=== PATIENT | male | born 1965 | race Caucasian/White ===

== ENCOUNTER 2017-01-25 00:13 | Inpatient (IN) | payer MEDICARE, OTHER ==
[~2017-01-25] VITALS: Ht 162.6 cm; Wt 62.0 kg
[~2017-01-25 00:13] MED LIST: CARV3 PO; CLOP75 PO; DIVA500T35 PO; FENO160 PO; FLUO-191 PO; GLIPIZIDE PO; METF10002 PO; OLAN20TA2 PO
[2017-01-25] MEDS ORDERED: FENO48TA15 PO (00:31)
[2017-01-25 00:38] LABS: GLUCOSE,POINT OF CARE 159 MG/DL (70-110)
[2017-01-25] MEDS ORDERED: SODIUM CHLORIDE 0.9% 1,000 ML IV ONE ×2 (00:45→05:30)
[2017-01-25] MEDS ORDERED: KETOROLAC TROMETHAMINE 30 MG/ML VIAL IVP ONE (00:45)
[2017-01-25 00:55] LABS: BASOPHILS % (AUTO) 0.1 % (0.0-2.0); EOSINOPHILS % (AUTO) 0 % (1.0-6.0); HEMATOCRIT 39.4 % (41-53); HEMOGLOBIN 13.5 g/dL (13.5-17.5); LYMPHOCYTES # (AUTO) 0.7 K/uL (1.0-4.8); MEAN CORPUSCULAR HEMOGLOBIN 31.7 pg (26.0-34.0); MEAN CORPUSCULAR HGB CONC 34.2 G/dL (31.0-37.0); MEAN CORPUSCULAR VOLUME 93 fL (80-100); MONOCYTES # (AUTO) 0.3 K/uL (0.1-1.0); MONOCYTES % (AUTO) 2.1 % (2.0-9.0); NEUTROPHILS # (AUTO) 12.2 K/uL (1.8-7.7); PLATELET COUNT (AUTO) 331 K/uL (150-450); RED BLOOD CELL COUNT(AUTO) 4.26 MIL/uL (4.50-5.90); RED CELL DISTRIBUTION WIDTH 13.5 % (11.5-14.5); WHITE BLOOD COUNT (AUTO) 13.1 K/uL (4.5-11.0)
[2017-01-25 00:56] LABS: NEUTROPHILS % (AUTO) 92.8 % (40.0-70.0)
[2017-01-25 01:05] LABS: CALCIUM, TOTAL 9.2 mg/dL (8.8-10.5); CREATININE 9.91 mg/dL (0.60-1.30); POTASSIUM 4.6 mmol/L (3.5-5.1)
[2017-01-25 01:11] LABS: ALBUMIN 3.6 g/dL (3.4-5.0); BILIRUBIN,TOTAL 0.5 mg/dL (0.1-1.0)
[2017-01-25] MEDS ORDERED: ONDANSETRON HCL 4 MG/2 ML VIAL IVP PRN (03:00)
[2017-01-25] MEDS ORDERED: ACETAMINOPHEN 325 MG TABLET PO PRN ×2 (03:00→05:30)
[2017-01-25] MEDS ORDERED: 0.9% SODIUM CHLORIDE 10 ML SYRINGE IVP PRN (03:00)
[2017-01-25] MEDS ORDERED: ONDANSETRON HCL 4 MG/2 ML VIAL IVP ONE (03:30)
[2017-01-25] MEDS ORDERED: MORPHINE SULFATE 4 MG/ML SYRINGE IVP ONE (03:30)
[2017-01-25 03:59] VITALS: BP 153/83
[2017-01-25] MEDS ORDERED: DEXTROSE 50%-WATER 25 GM/50 ML SYRINGE IVP PRN (05:30)
[2017-01-25] MEDS ORDERED: ZOLPIDEM TARTRATE 5 MG TABLET PO PRN (05:30)
[2017-01-25] MEDS ORDERED: MAGNESIUM HYDROXIDE SUSPENSION 30 ML UDCUP PO PRN (05:30)
[2017-01-25] MEDS ORDERED: BISACODYL 10 MG RECTAL RECTAL SUPPOSITORY PR PRN (05:30)
[2017-01-25] MEDS: MORPHINE SULFATE 2 MG/ML SYRINGE IVP PRN (06:03)
[2017-01-25] MEDS: INSULIN ASPART 100 UNITS/ML SQ PRN (06:06)
[2017-01-25 06:49] LABS: GLUCOSE COMMENT 1 Received Meds; GLUCOSE,POINT OF CARE 173 MG/DL (70-110)
[2017-01-25 07:36] VITALS: BP 117/73
[2017-01-25] MEDS ORDERED: HEPARIN SODIUM,PORCINE 5,000 UNITS/ML VIAL SQ SCH (08:00)
[2017-01-25] MEDS: DOCUSATE SODIUM 100 MG CAPSULE PO SCH ×2 (08:30→20:08)
[2017-01-25] MEDS: FENOFIBRATE 48 MG TABLET PO SCH (08:31)
[2017-01-25] MEDS: DIVALPROEX SODIUM 500 MG DR TABLET PO SCH ×3 (08:31→20:08)
[2017-01-25] MEDS ORDERED: PANTOPRAZOLE SODIUM 40 MG DR TABLET PO SCH (09:00)
[2017-01-25] MEDS ORDERED: CLOPIDOGREL BISULFATE 75 MG TABLET PO SCH (09:00)
[2017-01-25 09:21] LABS: HEMATOCRIT 32.1 % (41-53)
[2017-01-25 09:28] LABS: HEMOGLOBIN 11.1 g/dL (13.5-17.5)
[2017-01-25] MEDS: PANTOPRAZOLE SODIUM 80 MG in SODIUM CHLORIDE 0.9% 100 ML IV SCH ×2 (09:50→20:19)
[2017-01-25] MEDS ORDERED: PANTOPRAZOLE SODIUM 80 MG in SODIUM CHLORIDE 0.9% 50 ML IV ONE (10:30)
[2017-01-25] MEDS ORDERED: PANTOPRAZOLE SODIUM 80 MG in SODIUM CHLORIDE 0.9% 100 ML IV SCH (10:30)
[2017-01-25] MEDS ORDERED: GLIP10 PO (11:19)
[2017-01-25] MEDS ORDERED: CARV6 PO (11:19)
[2017-01-25] MEDS: CARVEDILOL 6.25 MG TABLET PO SCH ×2 (11:56→20:08)
[2017-01-25 12:00] LABS: OSMOLALITY 317 mOS/kg (270-310)
[2017-01-25 12:07] LABS: CREATINE KINASE MB 5.2 ng/mL (0-5); CREATINE KINASE, TOTAL 142 U/L (39-308)
[2017-01-25 12:08] LABS: GLUCOSE,POINT OF CARE 95 MG/DL (70-110)
[2017-01-25 12:09] LABS: ACETAMINOPHEN < 2 mcg/mL (10-30)
[2017-01-25 14:50] VITALS: BP 150/82
[2017-01-25 15:31] LABS: ABG A-A DIFF O2 48.6 mmHg (10-20.0); ABG BASE EXCESS -6.5 mmol/L (-2.0-3.0); ABG HCO3 19.7 mmol/L (22.0-26.0); ABG OXYHEMOGLOBIN 90.6 % (94.0-100.0); ABG PCO2 32 mmHg (35-45); ABG PH 7.386 (7.35-7.450); TEMPERATURE, FAHRENHEIT, BG 97.8 FAHREN (96.0-98.6)
[2017-01-25 15:32] LABS: ALLEN TEST, BLOOD GAS Positive
[2017-01-25 16:00] VITALS: BP 133/74
[2017-01-25 16:44] LABS: HEMATOCRIT 34.6 % (41-53); HEMOGLOBIN 11.8 g/dL (13.5-17.5)
[2017-01-25 16:55] LABS: CALCIUM, TOTAL 7.9 mg/dL (8.8-10.5); CREATININE 10.33 mg/dL (0.60-1.30); POTASSIUM 4.6 mmol/L (3.5-5.1)
[2017-01-25 17:02] LABS: APPEARANCE,URINE CLOUDY (CLEAR); GLUCOSE, URINE (UA) NEGATIVE (NEGATIVE); KETONES,URINE TRACE mg/dL (NEGATIVE); LEUKOCYTE ESTERASE ,URINE NEGATIVE (NEGATIVE); OCCULT BLOOD,URINE MODERATE (NEGATIVE); PROTEIN,URINE SEE CONFIRM (NEGATIVE)
[2017-01-25 17:07] LABS: SQUAMOUS EPITHELIAL CELL,UR Moderate /LPF (None Seen); SULFOSALICYLIC ACID,URINE 2+ (Negative)
[2017-01-25 20:00] VITALS: BP 144/76
[2017-01-25 20:52] LABS: GLUCOSE,POINT OF CARE 90 MG/DL (70-110)
[2017-01-25] MEDS ORDERED: SODIUM CHLORIDE 0.9% 250 ML IV ONE (23:51)
[2017-01-26] VITALS (7 sets, daily range): BP systolic 117–168; BP diastolic 54–85
[2017-01-26 01:00] LABS: HEMATOCRIT 27.8 % (41-53); HEMOGLOBIN 9.6 g/dL (13.5-17.5)
[2017-01-26] MEDS: PANTOPRAZOLE SODIUM 80 MG in SODIUM CHLORIDE 0.9% 100 ML IV SCH ×2 (04:56→14:57)
[2017-01-26 05:51] LABS: EOSINOPHILS % (AUTO) 0 % (1.0-6.0); HEMATOCRIT 30.6 % (41-53); HEMOGLOBIN 10.5 g/dL (13.5-17.5); LYMPHOCYTES % (AUTO) 8.4 % (22.0-44.0); MEAN CORPUSCULAR HEMOGLOBIN 31.9 pg (26.0-34.0); MEAN CORPUSCULAR HGB CONC 34.2 G/dL (31.0-37.0); MEAN CORPUSCULAR VOLUME 93 fL (80-100); MONOCYTES % (AUTO) 10.4 % (2.0-9.0); NEUTROPHILS # (AUTO) 9.4 K/uL (1.8-7.7); NEUTROPHILS % (AUTO) 81.2 % (40.0-70.0); PLATELET COUNT (AUTO) 295 K/uL (150-450); RED BLOOD CELL COUNT(AUTO) 3.28 MIL/uL (4.50-5.90); RED CELL DISTRIBUTION WIDTH 13.7 % (11.5-14.5); WHITE BLOOD COUNT (AUTO) 11.6 K/uL (4.5-11.0)
[2017-01-26 05:52] LABS: MONOCYTES # (AUTO) 1.2 K/uL (0.1-1.0)
[2017-01-26 06:05] LABS: CALCIUM, TOTAL 7.9 mg/dL (8.8-10.5); CREATININE 8.26 mg/dL (0.60-1.30)
[2017-01-26 06:58] LABS: GLUCOSE,POINT OF CARE 92 MG/DL (70-110)
[2017-01-26 07:22] LABS: GLUCOSE,POINT OF CARE 80 MG/DL (70-110)
[2017-01-26] MEDS: DOCUSATE SODIUM 100 MG CAPSULE PO SCH ×2 (09:26→20:34)
[2017-01-26] MEDS: CLOPIDOGREL BISULFATE 75 MG TABLET PO SCH (09:26)
[2017-01-26] MEDS: FENOFIBRATE 48 MG TABLET PO SCH (09:26)
[2017-01-26] MEDS: DIVALPROEX SODIUM 500 MG DR TABLET PO SCH ×3 (09:26→20:35)
[2017-01-26] MEDS: CARVEDILOL 6.25 MG TABLET PO SCH ×2 (09:30→20:35)
[2017-01-26] MEDS: ONDANSETRON HCL 4 MG/2 ML VIAL IVP PRN (09:32)
[2017-01-26] MEDS ORDERED: SODIUM CHLORIDE 0.9% 1,000 ML IV ONE (09:45)
[2017-01-26 12:16] LABS: HEMATOCRIT 29.4 % (41-53); HEMOGLOBIN 10.2 g/dL (13.5-17.5)
[2017-01-26 16:19] LABS: GLUCOSE,POINT OF CARE 123 MG/DL (70-110)
[2017-01-26 17:28] LABS: GLUCOSE COMMENT 1 Received Meds; GLUCOSE,POINT OF CARE 152 MG/DL (70-110)
[2017-01-26 17:38] LABS: HEMATOCRIT 28.4 % (41-53); HEMOGLOBIN 9.8 g/dL (13.5-17.5)
[2017-01-26] MEDS: BISACODYL 5 MG EC TABLET PO SCH (20:34)
[2017-01-27] VITALS (7 sets, daily range): BP systolic 146–178; BP diastolic 74–97
[2017-01-27] MEDS: PANTOPRAZOLE SODIUM 80 MG in SODIUM CHLORIDE 0.9% 100 ML IV SCH ×3 (02:32→20:34)
[2017-01-27 06:09] LABS: BASOPHILS % (AUTO) 0.2 % (0.0-2.0); EOSINOPHILS % (AUTO) 0 % (1.0-6.0); HEMATOCRIT 28.5 % (41-53); HEMOGLOBIN 9.9 g/dL (13.5-17.5); LYMPHOCYTES % (AUTO) 11.3 % (22.0-44.0); MEAN CORPUSCULAR HEMOGLOBIN 32.2 pg (26.0-34.0); MEAN CORPUSCULAR HGB CONC 34.8 G/dL (31.0-37.0); MEAN CORPUSCULAR VOLUME 93 fL (80-100); MONOCYTES # (AUTO) 0.7 K/uL (0.1-1.0); MONOCYTES % (AUTO) 7.7 % (2.0-9.0); NEUTROPHILS % (AUTO) 80.8 % (40.0-70.0); PLATELET COUNT (AUTO) 259 K/uL (150-450); RED BLOOD CELL COUNT(AUTO) 3.08 MIL/uL (4.50-5.90); RED CELL DISTRIBUTION WIDTH 13.5 % (11.5-14.5); WHITE BLOOD COUNT (AUTO) 8.7 K/uL (4.5-11.0)
[2017-01-27 06:20] LABS: CALCIUM, TOTAL 8.6 mg/dL (8.8-10.5); CREATININE 3.68 mg/dL (0.60-1.30); POTASSIUM 3.9 mmol/L (3.5-5.1)
[2017-01-27] MEDS ORDERED: ONDANSETRON HCL 4 MG/2 ML VIAL IVP ONE (06:50)
[2017-01-27] MEDS ORDERED: PROPOFOL 1% 20 ML VIAL IVP ONE (06:50)
[2017-01-27 07:22] LABS: GLUCOSE COMMENT 1 Received Meds; GLUCOSE,POINT OF CARE 144 MG/DL (70-110)
[2017-01-27] MEDS: CARVEDILOL 6.25 MG TABLET PO SCH ×2 (08:52→20:34)
[2017-01-27] MEDS: CLOPIDOGREL BISULFATE 75 MG TABLET PO SCH (08:52)
[2017-01-27] MEDS: FENOFIBRATE 48 MG TABLET PO SCH (08:52)
[2017-01-27] MEDS: DIVALPROEX SODIUM 500 MG DR TABLET PO SCH ×3 (08:52→20:34)
[2017-01-27] MEDS: DOCUSATE SODIUM 100 MG CAPSULE PO SCH ×2 (08:52→20:34)
[2017-01-27] MEDS: BISACODYL 5 MG EC TABLET PO SCH ×2 (08:52→20:34)
[2017-01-27 09:09] LABS: GLUCOSE,POINT OF CARE 165 MG/DL (70-110)
[2017-01-27] MEDS: INSULIN ASPART 100 UNITS/ML SQ PRN ×3 (12:10→20:37)
[2017-01-27] MEDS: ONDANSETRON HCL 4 MG/2 ML VIAL IVP PRN (22:00)
[2017-01-27] MEDS ORDERED: CloNIDine HCL 0.1 MG TABLET PO PRN (23:30)
[2017-01-27 23:48] LABS: GLUCOSE COMMENT 1 Received Meds; GLUCOSE,POINT OF CARE 222 MG/DL (70-110)
[2017-01-28] MEDS: HYDROCODONE/ACETAMINOPHEN 5-325 MG TABLET PO PRN ×2 (00:05→12:28)
[2017-01-28 04:23] VITALS: BP 151/78
[2017-01-28] MEDS: INSULIN ASPART 100 UNITS/ML SQ PRN (05:48)
[2017-01-28 06:20] LABS: BASOPHILS % (AUTO) 0.2 % (0.0-2.0); EOSINOPHILS % (AUTO) 0.1 % (1.0-6.0); HEMATOCRIT 30.4 % (41-53); HEMOGLOBIN 10.5 g/dL (13.5-17.5); LYMPHOCYTES # (AUTO) 1.4 K/uL (1.0-4.8); LYMPHOCYTES % (AUTO) 19.6 % (22.0-44.0); MEAN CORPUSCULAR HEMOGLOBIN 32.4 pg (26.0-34.0); MEAN CORPUSCULAR HGB CONC 34.6 G/dL (31.0-37.0); MEAN CORPUSCULAR VOLUME 94 fL (80-100); MONOCYTES # (AUTO) 0.9 K/uL (0.1-1.0); MONOCYTES % (AUTO) 12.8 % (2.0-9.0); NEUTROPHILS % (AUTO) 67.3 % (40.0-70.0); PLATELET COUNT (AUTO) 283 K/uL (150-450); RED BLOOD CELL COUNT(AUTO) 3.25 MIL/uL (4.50-5.90); RED CELL DISTRIBUTION WIDTH 13.2 % (11.5-14.5); WHITE BLOOD COUNT (AUTO) 7.4 K/uL (4.5-11.0)
[2017-01-28 06:28] LABS: GLUCOSE,POINT OF CARE 265 MG/DL (70-110)
[2017-01-28 06:28] LABS: GLUCOSE,POINT OF CARE 176 MG/DL (70-110)
[2017-01-28 06:31] LABS: CALCIUM, TOTAL 9.2 mg/dL (8.8-10.5); CREATININE 1.74 mg/dL (0.60-1.30); MAGNESIUM 1.4 mg/dL (1.80-2.40); PHOSPHORUS 2.1 mg/dL (2.5-4.9); POTASSIUM 4.1 mmol/L (3.5-5.1)
[2017-01-28] MEDS: PANTOPRAZOLE SODIUM 80 MG in SODIUM CHLORIDE 0.9% 100 ML IV SCH (06:37)
[2017-01-28 07:33] VITALS: BP 165/87
[2017-01-28] MEDS: DIVALPROEX SODIUM 500 MG DR TABLET PO SCH ×3 (08:06→20:28)
[2017-01-28] MEDS: BISACODYL 5 MG EC TABLET PO SCH ×2 (08:06→20:28)
[2017-01-28] MEDS: DOCUSATE SODIUM 100 MG CAPSULE PO SCH ×2 (08:06→20:28)
[2017-01-28] MEDS: CLOPIDOGREL BISULFATE 75 MG TABLET PO SCH (08:06)
[2017-01-28] MEDS: FENOFIBRATE 48 MG TABLET PO SCH (08:06)
[2017-01-28] MEDS: CARVEDILOL 6.25 MG TABLET PO SCH ×2 (08:06→20:28)
[2017-01-28] MEDS: ONDANSETRON HCL 4 MG/2 ML VIAL IVP PRN ×2 (08:46→14:39)
[2017-01-28] MEDS: MORPHINE SULFATE 2 MG/ML SYRINGE IVP PRN (10:05)
[2017-01-28 11:30] VITALS: BP 190/98
[2017-01-28] MEDS ORDERED: SODIUM CHLORIDE 0.9% 1,000 ML IV ONE ×2 (12:15)
[2017-01-28] MEDS ORDERED: MAGNESIUM OXIDE 400 MG TABLET PO PRN (13:15)
[2017-01-28] MEDS ORDERED: MAGNESIUM SULFATE 4 GM/WATER 100 ML IV PRN (13:15)
[2017-01-28 13:36] LABS: ALBUMIN 2.9 g/dL (3.4-5.0)
[2017-01-28] MEDS: MAGNESIUM SULFATE 2 GM in DEXTROSE 5%-WATER 50 ML IV PRN (14:37)
[2017-01-28] MEDS: AmLODIPine BESYLATE 5 MG TABLET PO SCH (14:37)
[2017-01-28 15:49] VITALS: BP 142/83
[2017-01-28] MEDS: PANTOPRAZOLE SODIUM 40 MG/VIAL IVP SCH (20:28)
[2017-01-28 20:30] VITALS: BP 162/94
[2017-01-29 00:08] LABS: GLUCOSE COMMENT 1 Received Meds; GLUCOSE,POINT OF CARE 157 MG/DL (70-110)
[2017-01-29 00:11] VITALS: BP 127/82
[2017-01-29 00:37] LABS: GLUCOSE,POINT OF CARE 222 MG/DL (70-110)
[2017-01-29 00:43] LABS: GLUCOSE,POINT OF CARE 170 MG/DL (70-110)
[2017-01-29 00:43] LABS: GLUCOSE COMMENT 1 Received Meds; GLUCOSE,POINT OF CARE 152 MG/DL (70-110)
[2017-01-29 04:59] VITALS: BP 152/89
[2017-01-29 06:42] LABS: BASOPHILS % (AUTO) 0.2 % (0.0-2.0); EOSINOPHILS % (AUTO) 0.6 % (1.0-6.0); HEMATOCRIT 31.8 % (41-53); LYMPHOCYTES # (AUTO) 1.5 K/uL (1.0-4.8); LYMPHOCYTES % (AUTO) 21.2 % (22.0-44.0); MEAN CORPUSCULAR HEMOGLOBIN 32.1 pg (26.0-34.0); MEAN CORPUSCULAR HGB CONC 34.5 G/dL (31.0-37.0); MEAN CORPUSCULAR VOLUME 93 fL (80-100); MONOCYTES % (AUTO) 13.9 % (2.0-9.0); NEUTROPHILS # (AUTO) 4.6 K/uL (1.8-7.7); NEUTROPHILS % (AUTO) 64.1 % (40.0-70.0); PLATELET COUNT (AUTO) 301 K/uL (150-450); RED BLOOD CELL COUNT(AUTO) 3.42 MIL/uL (4.50-5.90); RED CELL DISTRIBUTION WIDTH 13.3 % (11.5-14.5); WHITE BLOOD COUNT (AUTO) 7.2 K/uL (4.5-11.0)
[2017-01-29 07:44] VITALS: BP 157/81
[2017-01-29 07:45] LABS: ANION GAP 9 mmol/L (8-16); CALCIUM, TOTAL 8.9 mg/dL (8.8-10.5); CARBON DIOXIDE 23 mmol/L (22-29); CHLORIDE 99 mmol/L (98-107); CREATININE 1.21 mg/dL (0.60-1.30); GLOMERULAR FILTR. RATE CALC > 60 mL/min (>60); PHOSPHORUS 2.4 mg/dL (2.5-4.9); POTASSIUM 3.9 mmol/L (3.5-5.1); SODIUM SERUM 131 mmol/L (136-145); UREA NITROGEN, BLOOD 28 mg/dL (7-18)
[2017-01-29] MEDS: PANTOPRAZOLE SODIUM 40 MG/VIAL IVP SCH ×2 (08:29→20:54)
[2017-01-29] MEDS: DOCUSATE SODIUM 100 MG CAPSULE PO SCH ×2 (08:30→20:53)
[2017-01-29] MEDS: FENOFIBRATE 48 MG TABLET PO SCH (08:30)
[2017-01-29] MEDS: HYDROCODONE/ACETAMINOPHEN 5-325 MG TABLET PO PRN (08:30)
[2017-01-29] MEDS: CARVEDILOL 6.25 MG TABLET PO SCH ×2 (08:30→20:54)
[2017-01-29] MEDS: DIVALPROEX SODIUM 500 MG DR TABLET PO SCH ×3 (08:30→20:53)
[2017-01-29] MEDS: CLOPIDOGREL BISULFATE 75 MG TABLET PO SCH (08:30)
[2017-01-29] MEDS: AmLODIPine BESYLATE 5 MG TABLET PO SCH (08:30)
[2017-01-29] MEDS: BISACODYL 5 MG EC TABLET PO SCH ×2 (08:31→20:53)
[2017-01-29 11:34] VITALS: BP 110/69
[2017-01-29] MEDS: MAGNESIUM SULFATE 2 GM in DEXTROSE 5%-WATER 50 ML IV PRN (11:50)
[2017-01-29] MEDS: MORPHINE SULFATE 2 MG/ML SYRINGE IVP PRN (11:50)
[2017-01-29] MEDS: INSULIN ASPART 100 UNITS/ML SQ PRN ×2 (11:55→20:59)
[2017-01-29] MEDS ORDERED: SODIUM PHOS,M-BASIC-D-BASIC 30 MMOL in DEXTROSE 5%-WATER 250 ML IV ONE ×2 (12:00→15:00)
[2017-01-29] MEDS ORDERED: MAGNESIUM SULFATE 3 GM in DEXTROSE 5%-WATER 100 ML IV ONE (12:00)
[2017-01-29 13:47] LABS: GLUCOSE COMMENT 1 Received Meds; GLUCOSE,POINT OF CARE 160 MG/DL (70-110)
[2017-01-29 15:54] VITALS: BP 136/77
[2017-01-29 19:28] LABS: RBC MORPHOLOGY COMMENT NORMAL RBC MORPH
[2017-01-29 20:20] VITALS: BP 132/80
[2017-01-30 00:10] VITALS: BP 138/85
[2017-01-30 05:09] VITALS: BP 116/75
[2017-01-30] MEDS: INSULIN ASPART 100 UNITS/ML SQ PRN ×2 (05:57→11:31)
[2017-01-30 05:58] LABS: GLUCOSE,POINT OF CARE 244 MG/DL (70-110)
[2017-01-30 07:28] VITALS: BP 132/74
[2017-01-30] MEDS: CARVEDILOL 6.25 MG TABLET PO SCH (08:14)
[2017-01-30] MEDS: BISACODYL 5 MG EC TABLET PO SCH (08:14)
[2017-01-30] MEDS: DOCUSATE SODIUM 100 MG CAPSULE PO SCH (08:14)
[2017-01-30] MEDS: DIVALPROEX SODIUM 500 MG DR TABLET PO SCH ×2 (08:14→16:40)
[2017-01-30] MEDS: AmLODIPine BESYLATE 5 MG TABLET PO SCH (08:14)
[2017-01-30] MEDS: FENOFIBRATE 48 MG TABLET PO SCH (08:14)
[2017-01-30] MEDS: CLOPIDOGREL BISULFATE 75 MG TABLET PO SCH (08:14)
[2017-01-30] MEDS: PANTOPRAZOLE SODIUM 40 MG/VIAL IVP SCH (08:17)
[2017-01-30 11:06] VITALS: BP 122/76
[2017-01-30 14:54] VITALS: BP 117/63
[2017-01-30] MEDS ORDERED: AMLO-511 PO (17:24)
[2017-01-30] MEDS ORDERED: GLIP5 PO (17:24)
[2017-01-31 17:33] LABS: GLUCOSE,POINT OF CARE 192 MG/DL (70-110)
[2017-01-31 17:37] LABS: GLUCOSE COMMENT 1 Received Meds; GLUCOSE,POINT OF CARE 235 MG/DL (70-110)
[2017-01-31 17:38] LABS: GLUCOSE COMMENT 1 Received Meds; GLUCOSE,POINT OF CARE 187 MG/DL (70-110)
[2017-01-31 17:38] LABS: GLUCOSE COMMENT 1 Received Meds; GLUCOSE,POINT OF CARE 218 MG/DL (70-110)
== END 2017-01-30 18:17 | disposition home or self-care (01) | DRG 388 ==
LOC: EMS 00:15 → 6N 03:00 → ICU 14:51 → 5S 01-26 15:40
PROVIDERS: ADMIT Internal Medicine; ATTEND Internal Medicine
PROC: 0DJ08ZZ Inspection of Upper Intestinal Tract, Via Natural or Artificial Opening Endoscopic (ICD-10-PCS; principal; 2017-01-25 10:15)
DX: K56.600 Partial intestinal obstruction, unspecified as to cause (principal); E43 Unspecified severe protein-calorie malnutrition; J90 Pleural effusion, not elsewhere classified; N17.9 Acute kidney failure, unspecified; K92.0 Hematemesis; E11.22 Type 2 diabetes mellitus with diabetic chronic kidney disease; N18.3 Chronic kidney disease, stage 3 (moderate); E87.2 Acidosis; E87.1 Hypo-osmolality and hyponatremia; K20.9 Esophagitis, unspecified; E11.65 Type 2 diabetes mellitus with hyperglycemia; E78.5 Hyperlipidemia, unspecified; E87.8 Other disorders of electrolyte and fluid balance, not elsewhere classified; I12.9 Hypertensive chronic kidney disease with stage 1 through stage 4 chronic kidney disease, or unspecified chronic kidney disease; F10.10 Alcohol abuse, uncomplicated; F12.90 Cannabis use, unspecified, uncomplicated; F17.210 Nicotine dependence, cigarettes, uncomplicated; F25.9 Schizoaffective disorder, unspecified; M54.30 Sciatica, unspecified side; I25.10 Atherosclerotic heart disease of native coronary artery without angina pectoris; Z79.02 Long term (current) use of antithrombotics/antiplatelets; Z95.5 Presence of coronary angioplasty implant and graft; Z90.49 Acquired absence of other specified parts of digestive tract; Z79.899 Other long term (current) drug therapy; Z71.6 Tobacco abuse counseling; Z68.23 Body mass index [BMI] 23.0-23.9, adult
CPT/HCPCS: 71250; 74010; 74176; 76705; 76770; 80307; 82010; 82306; 82570; 82652; 82693; 82805; 82962; 83605; 83735; 83930; 83935; 83970; 84100; 84156; 84300; 84540; 85014; 85018; 87081; 93005; 94002; 96361; 96374; 99285; C9113; G0480; G0481; J1644; J1885; J2270; J2405; J2704; J3475; J3490; J7030; J7050; J7060

== ENCOUNTER 2017-02-18 13:04 | Inpatient (IN) | payer MEDICARE, OTHER ==
[~2017-02-18] VITALS: Ht 162.6 cm; Wt 60.0 kg
[~2017-02-18 13:04] MED LIST changes: +AMLO-511 PO; -CARV3 PO; +CARV6 PO; -FENO160 PO; +FENO48TA15 PO; +GLIP5 PO; -GLIPIZIDE PO; -METF10002 PO
[2017-02-18] MEDS ORDERED: RANI150T7 PO (13:24)
[2017-02-18] MEDS ORDERED: METF500T4 PO (13:24)
[2017-02-18] MEDS ORDERED: LISI-660 PO (13:24)
[2017-02-18] MEDS ORDERED: ATOR40TA28 PO (13:24)
[2017-02-18 13:48] LABS: GLUCOSE,POINT OF CARE 164 MG/DL (70-110)
[2017-02-18] MEDS ORDERED: PANTOPRAZOLE SODIUM 40 MG/VIAL IVP ONE (14:15)
[2017-02-18] MEDS ORDERED: ONDANSETRON HCL 4 MG/2 ML VIAL IVP ONE (14:15)
[2017-02-18] MEDS ORDERED: SODIUM CHLORIDE 0.9% 1,000 ML IV ONE (14:15)
[2017-02-18 15:43] LABS: ANION GAP 9 mmol/L (8-16); CALCIUM, TOTAL 9.1 mg/dL (8.8-10.5); CARBON DIOXIDE 24 mmol/L (22-29); CHLORIDE 102 mmol/L (98-107); GLOMERULAR FILTR. RATE CALC 49 mL/min (>60); GLUCOSE,RANDOM 146 mg/dL (70-110); POTASSIUM 4.8 mmol/L (3.5-5.1); SODIUM SERUM 135 mmol/L (136-145); UREA NITROGEN, BLOOD 22 mg/dL (7-18)
[2017-02-18 15:44] LABS: BASOPHILS # (AUTO) 0.02 K/uL (0.00-0.20); BASOPHILS % (AUTO) 0.3 % (0.0-2.0); EOSINOPHILS # (AUTO) 0.02 K/uL (0.00-0.70); EOSINOPHILS % (AUTO) 0.37 % (1.0-6.0); HEMATOCRIT 24.1 % (41-53); LYMPHOCYTES # (AUTO) 1.5 K/uL (1.0-4.8); LYMPHOCYTES % (AUTO) 22.2 % (22.0-44.0); MEAN CORPUSCULAR HEMOGLOBIN 31.9 pg (26.0-34.0); MEAN CORPUSCULAR HGB CONC 33.3 G/dL (31.0-37.0); MEAN CORPUSCULAR VOLUME 96 fL (80-100); MONOCYTES # (AUTO) 0.4 K/uL (0.1-1.0); MONOCYTES % (AUTO) 6.3 % (2.0-9.0); NEUTROPHILS # (AUTO) 4.7 K/uL (1.8-7.7); NEUTROPHILS % (AUTO) 70.9 % (40.0-70.0); PLATELET COUNT (AUTO) 231 K/uL (150-450); RED BLOOD CELL COUNT(AUTO) 2.51 MIL/uL (4.50-5.90); RED CELL DISTRIBUTION WIDTH 14.2 % (11.5-14.5)
[2017-02-18 15:49] LABS: ALANINE AMINOTRANSFERASE 16 U/L (12-78); ALBUMIN 3.1 g/dL (3.4-5.0); ALKALINE PHOSPHATASE 50 U/L (46-116); ASPARTATE AMINOTRANSFERASE 9 U/L (15-37); BILIRUBIN,TOTAL 0.2 mg/dL (0.1-1.0); CREATINE KINASE, TOTAL 26 U/L (39-308); LIPASE 285 U/L (73-393); TOTAL PROTEIN, SERUM 6.2 g/dL (6.4-8.2)
[2017-02-18 15:56] LABS: PROTHROMBIN TIME 10.8 SEC (9.4-11.6)
[2017-02-18 16:17] LABS: B-TYPE NATRIURETIC PEPTIDE 101 pg/mL (0-100)
[2017-02-18 17:57] LABS: APPEARANCE,URINE CLEAR (CLEAR); BILIRUBIN,URINE NEGATIVE (NEGATIVE); GLUCOSE, URINE (UA) NEGATIVE (NEGATIVE); KETONES,URINE NEGATIVE (NEGATIVE); LEUKOCYTE ESTERASE ,URINE NEGATIVE (NEGATIVE); NITRATE,URINE NEGATIVE (NEGATIVE); OCCULT BLOOD,URINE NEGATIVE (NEGATIVE); PH,URINE 5.5 (5.0-8.0); PROTEIN,URINE NEGATIVE (NEGATIVE); UROBILINOGEN,URINE 0.2 mg/dL (<=1.0)
[2017-02-18] MEDS ORDERED: ONDANSETRON HCL 4 MG/2 ML VIAL IVP PRN ×2 (20:15→23:30)
[2017-02-18] MEDS ORDERED: 0.9% SODIUM CHLORIDE 10 ML SYRINGE IVP PRN (20:15)
[2017-02-18] MEDS ORDERED: ACETAMINOPHEN 325 MG TABLET PO PRN ×2 (20:15→23:30)
[2017-02-18 21:00] VITALS: BP 148/89
[2017-02-18] MEDS ORDERED: ALBUTEROL SULFATE 2.5 MG/0.5 ML NEB SOLUTION NEB PRN (23:30)
[2017-02-18] MEDS ORDERED: DEXTROSE 50%-WATER 25 GM/50 ML SYRINGE IVP PRN (23:30)
[2017-02-18] MEDS ORDERED: ZOLPIDEM TARTRATE 5 MG TABLET PO PRN (23:30)
[2017-02-18] MEDS ORDERED: BISACODYL 10 MG RECTAL RECTAL SUPPOSITORY PR PRN (23:30)
[2017-02-18] MEDS ORDERED: MORPHINE SULFATE 2 MG/ML SYRINGE IVP PRN (23:30)
[2017-02-18] MEDS ORDERED: HYDROCODONE/ACETAMINOPHEN 5-325 MG TABLET PO PRN (23:30)
[2017-02-18] MEDS ORDERED: IPRATROPIUM BROMIDE 0.5 MG/2.5 ML NEB SOLUTION NEB PRN (23:30)
[2017-02-18] MEDS ORDERED: INSULIN REGULAR, HUMAN 100 UNITS/ML SQ PRN (23:30)
[2017-02-18] MEDS ORDERED: MAGNESIUM HYDROXIDE SUSPENSION 30 ML UDCUP PO PRN (23:30)
[2017-02-19] VITALS (14 sets, daily range): BP systolic 128–156; BP diastolic 66–86
[2017-02-19] MEDS: HEPARIN SODIUM,PORCINE 5,000 UNITS/ML VIAL SQ SCH ×4 (01:28→23:40)
[2017-02-19] MEDS: NITROGLYCERIN 2% (1 GM=INCH) PACKET TP SCH ×5 (01:28→23:40)
[2017-02-19 06:33] LABS: ALANINE AMINOTRANSFERASE 15 U/L (12-78); ALBUMIN 2.5 g/dL (3.4-5.0); ALKALINE PHOSPHATASE 42 U/L (46-116); ANION GAP 5 mmol/L (8-16); ASPARTATE AMINOTRANSFERASE 10 U/L (15-37); BILIRUBIN,TOTAL 0.2 mg/dL (0.1-1.0); CALCIUM, TOTAL 8.7 mg/dL (8.8-10.5); CARBON DIOXIDE 25 mmol/L (22-29); CHLORIDE 106 mmol/L (98-107); CHOL/HDL RATIO 3.2 (4.2-7.3); CHOLESTEROL 106 mg/dL (131-200); CREATININE 1.07 mg/dL (0.60-1.30); GLOMERULAR FILTR. RATE CALC > 60 mL/min (>60); GLUCOSE,RANDOM 77 mg/dL (70-110); HDL CHOLESTEROL 33 mg/dL (40-60); POTASSIUM 4.6 mmol/L (3.5-5.1); SODIUM SERUM 136 mmol/L (136-145); TOTAL PROTEIN, SERUM 5.2 g/dL (6.4-8.2); TRIGLYCERIDES 247 mg/dL (15-150); UREA NITROGEN, BLOOD 16 mg/dL (7-18)
[2017-02-19 06:34] LABS: LDL CHOL (CALC.) 24 mg/dL (0-130)
[2017-02-19 07:03] LABS: BASOPHILS # (AUTO) 0.01 K/uL (0.00-0.20); BASOPHILS % (AUTO) 0.3 % (0.0-2.0); EOSINOPHILS # (AUTO) 0.03 K/uL (0.00-0.70); EOSINOPHILS % (AUTO) 0.66 % (1.0-6.0); LYMPHOCYTES # (AUTO) 1.6 K/uL (1.0-4.8); LYMPHOCYTES % (AUTO) 39.1 % (22.0-44.0); MEAN CORPUSCULAR HEMOGLOBIN 31.9 pg (26.0-34.0); MEAN CORPUSCULAR HGB CONC 34.2 G/dL (31.0-37.0); MEAN CORPUSCULAR VOLUME 93 fL (80-100); MONOCYTES # (AUTO) 0.4 K/uL (0.1-1.0); NEUTROPHILS # (AUTO) 2.1 K/uL (1.8-7.7); PLATELET COUNT (AUTO) 221 K/uL (150-450)
[2017-02-19] MEDS: GlipiZIDE 5 MG TABLET PO SCH (07:15)
[2017-02-19 07:22] LABS: HEMATOCRIT 20.6 % (41-53)
[2017-02-19] MEDS ORDERED: PANTOPRAZOLE SODIUM 40 MG DR TABLET PO SCH (09:00)
[2017-02-19] MEDS ORDERED: LANSOPRAZOLE 30 MG SOLUBLE TABLET PO SCH (09:00)
[2017-02-19] MEDS: ASPIRIN 81 MG CHEWABLE TABLET PO SCH (09:01)
[2017-02-19] MEDS: CARVEDILOL 6.25 MG TABLET PO SCH ×2 (09:02→20:23)
[2017-02-19] MEDS: DOCUSATE SODIUM 100 MG CAPSULE PO SCH ×2 (09:02→20:23)
[2017-02-19] MEDS: DIVALPROEX SODIUM 500 MG DR TABLET PO SCH ×3 (09:03→20:23)
[2017-02-19] MEDS: ATORVASTATIN CALCIUM 40 MG TABLET PO SCH (09:03)
[2017-02-19] MEDS: CLOPIDOGREL BISULFATE 75 MG TABLET PO SCH (09:04)
[2017-02-19] MEDS: FENOFIBRATE 48 MG TABLET PO SCH (09:04)
[2017-02-19] MEDS: FLUoxetine HCL 20 MG CAPSULE PO SCH ×3 (09:04→20:23)
[2017-02-19] MEDS: LISINOPRIL 5 MG TABLET PO SCH (09:05)
[2017-02-19] MEDS: RANITIDINE HCL 150 MG TABLET PO SCH (09:05)
[2017-02-19] MEDS: OLANZapine 10 MG TABLET PO SCH (09:06)
[2017-02-19] MEDS ORDERED: SODIUM CHLORIDE 0.9% 250 ML IV ONE (10:01)
[2017-02-19] MEDS ORDERED: METOCLOPRAMIDE HCL 5 MG/ML 2 ML VIAL IVP PRN (12:15)
[2017-02-19] MEDS: PANTOPRAZOLE SODIUM 40 MG/VIAL IVP SCH (20:23)
[2017-02-19 23:08] LABS: GLUCOMETER DEV NAME(LOC) 5N 1M; GLUCOSE,POINT OF CARE 122 MG/DL (70-110)
[2017-02-19 23:08] LABS: GLUCOMETER DEV NAME(LOC) 5N 1M; GLUCOSE,POINT OF CARE 132 MG/DL (70-110)
[2017-02-19 23:08] LABS: GLUCOMETER DEV NAME(LOC) 5N 1M; GLUCOSE,POINT OF CARE 91 MG/DL (70-110)
[2017-02-19 23:08] LABS: GLUCOMETER DEV NAME(LOC) 5N 2R; GLUCOSE,POINT OF CARE 88 MG/DL (70-110)
[2017-02-19 23:08] LABS: GLUCOMETER DEV NAME(LOC) 5N 1M; GLUCOSE,POINT OF CARE 214 MG/DL (70-110)
[2017-02-20 00:12] VITALS: BP 133/80
[2017-02-20 05:00] VITALS: BP 131/84
[2017-02-20] MEDS: GlipiZIDE 5 MG TABLET PO SCH (06:04)
[2017-02-20] MEDS: NITROGLYCERIN 2% (1 GM=INCH) PACKET TP SCH ×2 (06:04→12:00)
[2017-02-20 06:12] LABS: BASOPHILS % (AUTO) 0.3 % (0.0-2.0); EOSINOPHILS % (AUTO) 0.6 % (1.0-6.0); HEMATOCRIT 27.3 % (41-53); HEMOGLOBIN 9.5 g/dL (13.5-17.5); LYMPHOCYTES # (AUTO) 2.1 K/uL (1.0-4.8); LYMPHOCYTES % (AUTO) 34.7 % (22.0-44.0); MEAN CORPUSCULAR HEMOGLOBIN 32.1 pg (26.0-34.0); MEAN CORPUSCULAR HGB CONC 34.8 G/dL (31.0-37.0); MEAN CORPUSCULAR VOLUME 92 fL (80-100); MONOCYTES # (AUTO) 0.7 K/uL (0.1-1.0); MONOCYTES % (AUTO) 10.8 % (2.0-9.0); NEUTROPHILS # (AUTO) 3.3 K/uL (1.8-7.7); NEUTROPHILS % (AUTO) 53.6 % (40.0-70.0); PLATELET COUNT (AUTO) 252 K/uL (150-450); RED BLOOD CELL COUNT(AUTO) 2.96 MIL/uL (4.50-5.90); RED CELL DISTRIBUTION WIDTH 14.9 % (11.5-14.5)
[2017-02-20 06:27] LABS: HEMOGLOBIN A1C 7.9 % (4.5-6.2)
[2017-02-20 06:50] LABS: ANION GAP 10 mmol/L (8-16); CALCIUM, TOTAL 8.9 mg/dL (8.8-10.5); CARBON DIOXIDE 23 mmol/L (22-29); CHLORIDE 102 mmol/L (98-107); CREATININE 1.04 mg/dL (0.60-1.30); GLOMERULAR FILTR. RATE CALC > 60 mL/min (>60); GLUCOSE,RANDOM 121 mg/dL (70-110); POTASSIUM 4.8 mmol/L (3.5-5.1); SODIUM SERUM 135 mmol/L (136-145); UREA NITROGEN, BLOOD 19 mg/dL (7-18)
[2017-02-20 06:53] LABS: GLUCOMETER DEV NAME(LOC) 5N 1M; GLUCOSE,POINT OF CARE 158 MG/DL (70-110)
[2017-02-20 07:14] VITALS: BP 129/77
[2017-02-20] MEDS: DOCUSATE SODIUM 100 MG CAPSULE PO SCH (08:17)
[2017-02-20] MEDS: ASPIRIN 81 MG CHEWABLE TABLET PO SCH (08:17)
[2017-02-20] MEDS: CARVEDILOL 6.25 MG TABLET PO SCH (08:17)
[2017-02-20] MEDS: PANTOPRAZOLE SODIUM 40 MG/VIAL IVP SCH (08:17)
[2017-02-20] MEDS: ATORVASTATIN CALCIUM 40 MG TABLET PO SCH (08:18)
[2017-02-20] MEDS: CLOPIDOGREL BISULFATE 75 MG TABLET PO SCH (08:18)
[2017-02-20] MEDS: DIVALPROEX SODIUM 500 MG DR TABLET PO SCH (08:18)
[2017-02-20] MEDS: FLUoxetine HCL 20 MG CAPSULE PO SCH (08:19)
[2017-02-20] MEDS: FENOFIBRATE 48 MG TABLET PO SCH (08:20)
[2017-02-20] MEDS: RANITIDINE HCL 150 MG TABLET PO SCH (08:20)
[2017-02-20] MEDS: LISINOPRIL 5 MG TABLET PO SCH (08:20)
[2017-02-20] MEDS: OLANZapine 10 MG TABLET PO SCH (08:21)
[2017-02-20] MEDS: HEPARIN SODIUM,PORCINE 5,000 UNITS/ML VIAL SQ SCH (08:21)
[2017-02-20 11:33] VITALS: BP 117/69
[2017-02-20 14:18] LABS: GLUCOMETER DEV NAME(LOC) 5N 2R; GLUCOSE,POINT OF CARE 136 MG/DL (70-110)
== END 2017-02-20 15:50 | disposition home or self-care (01) | DRG 392 ==
LOC: EMS 13:08 → 5N 19:50
PROVIDERS: ADMIT Hospitalist; ATTEND Hospitalist
PROC: 30233N1 Transfusion of Nonautologous Red Blood Cells into Peripheral Vein, Percutaneous Approach (ICD-10-PCS; principal; 2017-02-19)
DX: K21.0 Gastro-esophageal reflux disease with esophagitis (principal); N17.9 Acute kidney failure, unspecified; E11.22 Type 2 diabetes mellitus with diabetic chronic kidney disease; F20.9 Schizophrenia, unspecified; I13.0 Hypertensive heart and chronic kidney disease with heart failure and stage 1 through stage 4 chronic kidney disease, or unspecified chronic kidney disease; N18.9 Chronic kidney disease, unspecified; D64.9 Anemia, unspecified; E78.5 Hyperlipidemia, unspecified; F10.10 Alcohol abuse, uncomplicated; Z72.0 Tobacco use; Z95.5 Presence of coronary angioplasty implant and graft
CPT/HCPCS: 82270; 82271; 82962; 83036; 86850; 86900; 86901; 86920; 93005; 93306; 96361; 96374; 96375; 99285; C9113; J1644; J2405; J7030; J7050; P9016

== ENCOUNTER 2017-08-22 12:08 | Emergency (ER) | payer MEDICARE, OTHER ==
[~2017-08-22] VITALS: Ht 167.6 cm; Wt 68.2 kg
[~2017-08-22 12:08] MED LIST changes: -AMLO-511 PO; +ATOR40TA28 PO; +LISI-660 PO; +METF500T6 PO; +RANI150T7 PO
[2017-08-22 13:12] LABS: GLUCOSE,POINT OF CARE 60 MG/DL (70-110)
[2017-08-22 14:47] LABS: GLUCOSE,POINT OF CARE 98 MG/DL (70-110)
[2017-08-22 14:51] LABS: BASOPHILS % (AUTO) 0.2 % (0.0-2.0); EOSINOPHILS % (AUTO) 0.3 % (1.0-6.0); HEMATOCRIT 33.3 % (41-53); HEMOGLOBIN 11.5 g/dL (13.5-17.5); LYMPHOCYTES # (AUTO) 1.3 K/uL (1.0-4.8); LYMPHOCYTES % (AUTO) 21.9 % (22.0-44.0); MEAN CORPUSCULAR HEMOGLOBIN 31.4 pg (26.0-34.0); MEAN CORPUSCULAR HGB CONC 34.4 G/dL (31.0-37.0); MEAN CORPUSCULAR VOLUME 91 fL (80-100); MONOCYTES # (AUTO) 0.3 K/uL (0.1-1.0); MONOCYTES % (AUTO) 5.6 % (2.0-9.0); NEUTROPHILS # (AUTO) 4.1 K/uL (1.8-7.7); PLATELET COUNT (AUTO) 235 K/uL (150-450); RED BLOOD CELL COUNT(AUTO) 3.66 MIL/uL (4.50-5.90); RED CELL DISTRIBUTION WIDTH 13.8 % (11.5-14.5)
[2017-08-22 15:08] LABS: CALCIUM, TOTAL 9.5 mg/dL (8.8-10.5); CREATININE 1.39 mg/dL (0.60-1.30); POTASSIUM 4.3 mmol/L (3.5-5.1)
[2017-08-22 15:22] VITALS: BP 167/78
[2017-08-22 15:34] LABS: ALBUMIN 3.7 g/dL (3.4-5.0); BILIRUBIN,TOTAL 0.4 mg/dL (0.1-1.0); CKMB RELATIVE INDEX 3.1 % (0.0-4.0); CREATINE KINASE MB 5.1 ng/mL (0-5); TOTAL PROTEIN, SERUM 7.7 g/dL (6.4-8.2)
== END 2017-08-22 15:56 | disposition home or self-care (01) ==
LOC: EMS 12:08
DX: E11.649 Type 2 diabetes mellitus with hypoglycemia without coma (principal); I10 Essential (primary) hypertension; E78.00 Pure hypercholesterolemia, unspecified; K21.9 Gastro-esophageal reflux disease without esophagitis; F17.210 Nicotine dependence, cigarettes, uncomplicated
CPT/HCPCS: 93005; 99285

== ENCOUNTER 2017-08-23 13:54 | Inpatient (IN) | payer SELFPAY ==
[~2017-08-23] VITALS: Ht 162.6 cm; Wt 60.0 kg
[2017-08-23 15:11] LABS: BASOPHILS % (AUTO) 0.1 % (0.0-2.0); EOSINOPHILS % (AUTO) 0.6 % (1.0-6.0); HEMATOCRIT 32.2 % (41-53); HEMOGLOBIN 11.3 g/dL (13.5-17.5); LYMPHOCYTES # (AUTO) 1.1 K/uL (1.0-4.8); LYMPHOCYTES % (AUTO) 20.1 % (22.0-44.0); MEAN CORPUSCULAR HEMOGLOBIN 31.5 pg (26.0-34.0); MEAN CORPUSCULAR VOLUME 90 fL (80-100); MONOCYTES # (AUTO) 0.5 K/uL (0.1-1.0); MONOCYTES % (AUTO) 8.3 % (2.0-9.0); NEUTROPHILS % (AUTO) 70.9 % (40.0-70.0); PLATELET COUNT (AUTO) 192 K/uL (150-450); RED BLOOD CELL COUNT(AUTO) 3.57 MIL/uL (4.50-5.90); RED CELL DISTRIBUTION WIDTH 13.5 % (11.5-14.5)
[2017-08-23 15:23] LABS: ANION GAP 7 mmol/L (8-16); CALCIUM, TOTAL 9.4 mg/dL (8.8-10.5); CARBON DIOXIDE 28 mmol/L (22-29); CHLORIDE 100 mmol/L (98-107); CREATININE 1.24 mg/dL (0.60-1.30); GLOMERULAR FILTR. RATE CALC > 60 mL/min (>60); GLUCOSE,RANDOM 122 mg/dL (70-110); POTASSIUM 4.9 mmol/L (3.5-5.1); SODIUM SERUM 135 mmol/L (136-145); UREA NITROGEN, BLOOD 33 mg/dL (7-18)
[2017-08-23 15:29] LABS: ALANINE AMINOTRANSFERASE 35 U/L (12-78); ALBUMIN 3.5 g/dL (3.4-5.0); ALKALINE PHOSPHATASE 92 U/L (46-116); ASPARTATE AMINOTRANSFERASE 66 U/L (15-37); BILIRUBIN,TOTAL 0.3 mg/dL (0.1-1.0)
[2017-08-23] MEDS ORDERED: HALOPERIDOL 5 MG TABLET PO PRN (16:15)
[2017-08-23] MEDS ORDERED: ZOLPIDEM TARTRATE 10 MG TABLET PO PRN (16:15)
[2017-08-23] MEDS ORDERED: LORazepam 2 MG TABLET PO PRN (16:15)
[2017-08-23 16:36] LABS: AMPHET/METH SCREEN,URINE NEGATIVE (NEGATIVE); BARBITURATE SCREEN, URINE NEGATIVE (NEGATIVE); BENZODIAZEPINES SCREEN,URINE NEGATIVE (NEGATIVE); CANNABINOID SCREEN,URINE POSITIVE (NEGATIVE); COCAINE SCREEN,URINE NEGATIVE (NEGATIVE); METHADONE SCREEN, URINE NEGATIVE (NEGATIVE); OPIATE SCREEN,URINE NEGATIVE (NEGATIVE); PHENCYCLIDINE SCREEN,URINE NEGATIVE (NEGATIVE)
[2017-08-23] MEDS ORDERED: QUEtiapine FUMARATE 100 MG TABLET PO ONE (18:00)
[2017-08-23] MEDS ORDERED: PETROLATUM,WHITE 71 GM JELLY TP PRN (19:45)
[2017-08-23] MEDS ORDERED: ACETAMINOPHEN 325 MG TABLET PO PRN (19:45)
[2017-08-23] MEDS ORDERED: MAG HYDROX/AL HYDROX/SIMETH ES 30 ML SUSPENSION UDCUP PO PRN (19:45)
[2017-08-23] MEDS ORDERED: BENZOCAINE/MENTHOL LOZENGE MM PRN (19:45)
[2017-08-23] MEDS ORDERED: ALBUTEROL SULFATE HFA 90 MCG/PUFF 8 GM INHALER IH PRN (19:45)
[2017-08-23] MEDS ORDERED: ONDANSETRON HCL 4 MG TABLET PO PRN (19:45)
[2017-08-23] MEDS ORDERED: BACITRACIN 28.4 GM OINTMENT TP PRN (19:45)
[2017-08-23] MEDS ORDERED: DEXTROSE 50%-WATER 25 GM/50 ML SYRINGE IVP PRN (19:45)
[2017-08-23] MEDS ORDERED: CloNIDine HCL 0.1 MG TABLET PO PRN (19:45)
[2017-08-23] MEDS ORDERED: MAGNESIUM HYDROXIDE SUSPENSION 30 ML UDCUP PO PRN (19:45)
[2017-08-23] MEDS ORDERED: LOPERAMIDE HCL 2 MG CAPSULE PO PRN (19:45)
[2017-08-23 20:57] LABS: GLUCOMETER DEV NAME(LOC) 3EC; GLUCOSE,POINT OF CARE 113 MG/DL (70-110)
[2017-08-24 06:22] LABS: GLUCOMETER DEV NAME(LOC) 3EC; GLUCOSE,POINT OF CARE 98 MG/DL (70-110)
[2017-08-24 06:39] LABS: BASOPHILS % (AUTO) 0.2 % (0.0-2.0); EOSINOPHILS % (AUTO) 1.1 % (1.0-6.0); HEMATOCRIT 32.3 % (41-53); HEMOGLOBIN 11.5 g/dL (13.5-17.5); LYMPHOCYTES % (AUTO) 28.5 % (22.0-44.0); MEAN CORPUSCULAR HEMOGLOBIN 32.1 pg (26.0-34.0); MEAN CORPUSCULAR HGB CONC 35.6 G/dL (31.0-37.0); MEAN CORPUSCULAR VOLUME 90 fL (80-100); MONOCYTES # (AUTO) 0.8 K/uL (0.1-1.0); MONOCYTES % (AUTO) 11.5 % (2.0-9.0); NEUTROPHILS # (AUTO) 4.1 K/uL (1.8-7.7); NEUTROPHILS % (AUTO) 58.7 % (40.0-70.0); PLATELET COUNT (AUTO) 191 K/uL (150-450); RED BLOOD CELL COUNT(AUTO) 3.59 MIL/uL (4.50-5.90); RED CELL DISTRIBUTION WIDTH 13.7 % (11.5-14.5)
[2017-08-24 06:54] LABS: HEMOGLOBIN A1C 6.7 % (4.5-6.2)
[2017-08-24] MEDS: GlipiZIDE 5 MG TABLET PO SCH (07:05)
[2017-08-24 07:13] LABS: ANION GAP 10 mmol/L (8-16); CALCIUM, TOTAL 9.6 mg/dL (8.8-10.5); CARBON DIOXIDE 25 mmol/L (22-29); CHLORIDE 102 mmol/L (98-107); CHOL/HDL RATIO 2.2 (4.2-7.3); CHOLESTEROL 105 mg/dL (131-200); CREATININE 1.04 mg/dL (0.60-1.30); GLOMERULAR FILTR. RATE CALC > 60 mL/min (>60); GLUCOSE,RANDOM 102 mg/dL (70-110); HDL CHOLESTEROL 47 mg/dL (40-60); LDL CHOL (CALC.) 20 mg/dL (0-130); POTASSIUM 4.7 mmol/L (3.5-5.1); SODIUM SERUM 137 mmol/L (136-145); THYROID STIMULATING HORMONE 0.79 uIU/mL (0.36-3.74); TRIGLYCERIDES 192 mg/dL (15-150); UREA NITROGEN, BLOOD 24 mg/dL (7-18)
[2017-08-24] MEDS: LISINOPRIL 5 MG TABLET PO SCH (09:31)
[2017-08-24] MEDS: CLOPIDOGREL BISULFATE 75 MG TABLET PO SCH (09:31)
[2017-08-24] MEDS: FENOFIBRATE 48 MG TABLET PO SCH (09:31)
[2017-08-24] MEDS: RANITIDINE HCL 150 MG TABLET PO SCH (09:31)
[2017-08-24] MEDS: CARVEDILOL 6.25 MG TABLET PO SCH ×2 (09:31→16:57)
[2017-08-24] MEDS: ATORVASTATIN CALCIUM 40 MG TABLET PO SCH (09:31)
[2017-08-24 11:12] LABS: GLUCOMETER DEV NAME(LOC) 3EC; GLUCOSE,POINT OF CARE 179 MG/DL (70-110)
[2017-08-24] MEDS: INSULIN LISPRO 100 UNITS/ML SQ PRN ×3 (11:55→21:34)
[2017-08-24 16:40] VITALS: BP 132/69
[2017-08-24] MEDS: MetFORMIN HCL 500 MG TABLET PO SCH (16:57)
[2017-08-24 17:27] LABS: GLUCOMETER DEV NAME(LOC) 3EC; GLUCOSE,POINT OF CARE 154 MG/DL (70-110)
[2017-08-24 20:42] LABS: GLUCOMETER DEV NAME(LOC) 3EC; GLUCOSE,POINT OF CARE 186 MG/DL (70-110)
[2017-08-24] MEDS: DIVALPROEX SODIUM 500 MG DR TABLET PO SCH (20:50)
[2017-08-24] MEDS: OLANZapine 10 MG TABLET PO SCH (20:50)
[2017-08-25 06:37] LABS: GLUCOMETER DEV NAME(LOC) 3EC; GLUCOSE,POINT OF CARE 130 MG/DL (70-110)
[2017-08-25] MEDS: GlipiZIDE 5 MG TABLET PO SCH (06:54)
[2017-08-25] MEDS: RANITIDINE HCL 150 MG TABLET PO SCH (08:00)
[2017-08-25] MEDS: CARVEDILOL 6.25 MG TABLET PO SCH ×2 (08:00→17:49)
[2017-08-25] MEDS: CLOPIDOGREL BISULFATE 75 MG TABLET PO SCH (08:00)
[2017-08-25] MEDS: ATORVASTATIN CALCIUM 40 MG TABLET PO SCH (08:00)
[2017-08-25] MEDS: CITALOPRAM HYDROBROMIDE 20 MG TABLET PO SCH (08:00)
[2017-08-25] MEDS: FENOFIBRATE 48 MG TABLET PO SCH (08:01)
[2017-08-25] MEDS: LISINOPRIL 5 MG TABLET PO SCH (08:01)
[2017-08-25 09:51] VITALS: BP 119/76
[2017-08-25 09:53] VITALS: BP 119/76
[2017-08-25 11:38] LABS: GLUCOMETER DEV NAME(LOC) 3EC; GLUCOSE,POINT OF CARE 156 MG/DL (70-110)
[2017-08-25] MEDS: INSULIN LISPRO 100 UNITS/ML SQ PRN ×3 (11:50→22:10)
[2017-08-25 17:15] VITALS: BP 117/74
[2017-08-25 17:37] LABS: GLUCOMETER DEV NAME(LOC) 3EC; GLUCOSE,POINT OF CARE 148 MG/DL (70-110)
[2017-08-25] MEDS: MetFORMIN HCL 500 MG TABLET PO SCH (17:49)
[2017-08-25 20:43] LABS: GLUCOMETER DEV NAME(LOC) 3EC; GLUCOSE,POINT OF CARE 194 MG/DL (70-110)
[2017-08-25] MEDS: DIVALPROEX SODIUM 500 MG DR TABLET PO SCH (20:43)
[2017-08-25] MEDS: OLANZapine 10 MG TABLET PO SCH (20:44)
[2017-08-26 06:28] LABS: GLUCOMETER DEV NAME(LOC) 3EC; GLUCOSE,POINT OF CARE 139 MG/DL (70-110)
[2017-08-26] MEDS: GlipiZIDE 5 MG TABLET PO SCH (06:37)
[2017-08-26 09:22] VITALS: BP 126/79
[2017-08-26] MEDS: FENOFIBRATE 48 MG TABLET PO SCH (10:32)
[2017-08-26] MEDS: RANITIDINE HCL 150 MG TABLET PO SCH (10:32)
[2017-08-26] MEDS: ATORVASTATIN CALCIUM 40 MG TABLET PO SCH (10:33)
[2017-08-26] MEDS: CARVEDILOL 6.25 MG TABLET PO SCH ×2 (10:33→17:39)
[2017-08-26] MEDS: CLOPIDOGREL BISULFATE 75 MG TABLET PO SCH (10:33)
[2017-08-26] MEDS: CITALOPRAM HYDROBROMIDE 20 MG TABLET PO SCH (10:33)
[2017-08-26] MEDS: LISINOPRIL 5 MG TABLET PO SCH (10:33)
[2017-08-26 16:00] VITALS: BP 120/79
[2017-08-26] MEDS: MetFORMIN HCL 500 MG TABLET PO SCH (17:39)
[2017-08-26 17:47] LABS: GLUCOMETER DEV NAME(LOC) 3EC; GLUCOSE,POINT OF CARE 163 MG/DL (70-110)
[2017-08-26] MEDS: INSULIN LISPRO 100 UNITS/ML SQ PRN ×2 (18:00→21:36)
[2017-08-26] MEDS: OLANZapine 10 MG TABLET PO SCH (21:28)
[2017-08-26] MEDS: DIVALPROEX SODIUM 500 MG DR TABLET PO SCH (21:28)
[2017-08-26 21:42] LABS: GLUCOMETER DEV NAME(LOC) 3EC; GLUCOSE,POINT OF CARE 199 MG/DL (70-110)
[2017-08-27 06:17] LABS: GLUCOMETER DEV NAME(LOC) 3EC; GLUCOSE,POINT OF CARE 135 MG/DL (70-110)
[2017-08-27] MEDS: GlipiZIDE 5 MG TABLET PO SCH (06:55)
[2017-08-27 06:57] LABS: % IRON SATURATION 18.2 % (30-44)
[2017-08-27] MEDS: INSULIN LISPRO 100 UNITS/ML SQ PRN ×4 (07:02→22:06)
[2017-08-27] MEDS: CITALOPRAM HYDROBROMIDE 20 MG TABLET PO SCH (09:57)
[2017-08-27] MEDS: LISINOPRIL 5 MG TABLET PO SCH (09:57)
[2017-08-27] MEDS: CLOPIDOGREL BISULFATE 75 MG TABLET PO SCH (09:57)
[2017-08-27] MEDS: RANITIDINE HCL 150 MG TABLET PO SCH (09:57)
[2017-08-27] MEDS: CARVEDILOL 6.25 MG TABLET PO SCH ×2 (09:57→17:01)
[2017-08-27] MEDS: ATORVASTATIN CALCIUM 40 MG TABLET PO SCH (09:57)
[2017-08-27] MEDS: FENOFIBRATE 48 MG TABLET PO SCH (09:58)
[2017-08-27 11:48] LABS: GLUCOMETER DEV NAME(LOC) 3EC; GLUCOSE,POINT OF CARE 157 MG/DL (70-110)
[2017-08-27 16:00] VITALS: BP 148/81
[2017-08-27] MEDS: MetFORMIN HCL 500 MG TABLET PO SCH (17:01)
[2017-08-27 17:33] LABS: GLUCOMETER DEV NAME(LOC) 3EC; GLUCOSE,POINT OF CARE 156 MG/DL (70-110)
[2017-08-27] MEDS: DIVALPROEX SODIUM 500 MG DR TABLET PO SCH (21:00)
[2017-08-27] MEDS: OLANZapine 10 MG TABLET PO SCH (21:00)
[2017-08-27 21:17] LABS: GLUCOMETER DEV NAME(LOC) 3EC; GLUCOSE,POINT OF CARE 238 MG/DL (70-110)
[2017-08-28 06:17] LABS: GLUCOMETER DEV NAME(LOC) 3EC; GLUCOSE,POINT OF CARE 131 MG/DL (70-110)
[2017-08-28] MEDS: GlipiZIDE 5 MG TABLET PO SCH (07:07)
[2017-08-28 09:09] VITALS: BP 116/69
[2017-08-28] MEDS: RANITIDINE HCL 150 MG TABLET PO SCH (09:24)
[2017-08-28] MEDS: CARVEDILOL 6.25 MG TABLET PO SCH ×2 (09:25→16:45)
[2017-08-28] MEDS: CITALOPRAM HYDROBROMIDE 10 MG TABLET PO SCH (09:25)
[2017-08-28] MEDS: ATORVASTATIN CALCIUM 40 MG TABLET PO SCH (09:26)
[2017-08-28] MEDS: CLOPIDOGREL BISULFATE 75 MG TABLET PO SCH (09:26)
[2017-08-28] MEDS: FENOFIBRATE 48 MG TABLET PO SCH (09:26)
[2017-08-28] MEDS: LISINOPRIL 5 MG TABLET PO SCH (09:27)
[2017-08-28 11:42] LABS: GLUCOMETER DEV NAME(LOC) 3EC; GLUCOSE,POINT OF CARE 163 MG/DL (70-110)
[2017-08-28] MEDS: INSULIN LISPRO 100 UNITS/ML SQ PRN ×2 (12:10→17:07)
[2017-08-28 16:53] LABS: GLUCOMETER DEV NAME(LOC) 3EC; GLUCOSE,POINT OF CARE 156 MG/DL (70-110)
[2017-08-28] MEDS: MetFORMIN HCL 500 MG TABLET PO SCH (17:07)
[2017-08-28 17:35] VITALS: BP 117/75
[2017-08-28] MEDS: DIVALPROEX SODIUM 500 MG DR TABLET PO SCH (21:55)
[2017-08-28] MEDS: OLANZapine 10 MG TABLET PO SCH (21:56)
[2017-08-29 06:08] LABS: GLUCOMETER DEV NAME(LOC) 3EC; GLUCOSE,POINT OF CARE 132 MG/DL (70-110)
[2017-08-29] MEDS: GlipiZIDE 5 MG TABLET PO SCH (07:18)
[2017-08-29] MEDS: LISINOPRIL 5 MG TABLET PO SCH (08:13)
[2017-08-29] MEDS: CARVEDILOL 6.25 MG TABLET PO SCH ×2 (08:13→17:33)
[2017-08-29] MEDS: CITALOPRAM HYDROBROMIDE 10 MG TABLET PO SCH (08:13)
[2017-08-29] MEDS: CLOPIDOGREL BISULFATE 75 MG TABLET PO SCH (08:13)
[2017-08-29] MEDS: ATORVASTATIN CALCIUM 40 MG TABLET PO SCH (08:13)
[2017-08-29] MEDS: FENOFIBRATE 48 MG TABLET PO SCH (08:13)
[2017-08-29] MEDS: RANITIDINE HCL 150 MG TABLET PO SCH (08:13)
[2017-08-29] MEDS: MULTIVITAMINS WITH IRON TABLET PO SCH (08:13)
[2017-08-29 09:18] VITALS: BP 137/88
[2017-08-29 11:58] LABS: GLUCOMETER DEV NAME(LOC) 3EC; GLUCOSE,POINT OF CARE 249 MG/DL (70-110)
[2017-08-29] MEDS: INSULIN LISPRO 100 UNITS/ML SQ PRN (12:01)
[2017-08-29 16:00] VITALS: BP 141/78
[2017-08-29] MEDS: MetFORMIN HCL 500 MG TABLET PO SCH (17:33)
[2017-08-29 17:43] LABS: GLUCOMETER DEV NAME(LOC) 3EC; GLUCOSE,POINT OF CARE 119 MG/DL (70-110)
[2017-08-29] MEDS: DIVALPROEX SODIUM 500 MG DR TABLET PO SCH (21:24)
[2017-08-29] MEDS: OLANZapine 10 MG TABLET PO SCH (21:24)
[2017-08-30 06:23] LABS: GLUCOMETER DEV NAME(LOC) 3EC; GLUCOSE,POINT OF CARE 124 MG/DL (70-110)
[2017-08-30] MEDS: GlipiZIDE 5 MG TABLET PO SCH (06:42)
[2017-08-30 09:05] VITALS: BP 143/91
[2017-08-30] MEDS: CLOPIDOGREL BISULFATE 75 MG TABLET PO SCH (10:55)
[2017-08-30] MEDS: RANITIDINE HCL 150 MG TABLET PO SCH (10:55)
[2017-08-30] MEDS: ATORVASTATIN CALCIUM 40 MG TABLET PO SCH (10:55)
[2017-08-30] MEDS: MULTIVITAMINS WITH IRON TABLET PO SCH (10:55)
[2017-08-30] MEDS: LISINOPRIL 5 MG TABLET PO SCH (10:56)
[2017-08-30] MEDS: CARVEDILOL 6.25 MG TABLET PO SCH ×2 (10:56→16:24)
[2017-08-30] MEDS: FENOFIBRATE 48 MG TABLET PO SCH (10:56)
[2017-08-30] MEDS: CITALOPRAM HYDROBROMIDE 10 MG TABLET PO SCH (10:56)
[2017-08-30 11:38] LABS: GLUCOMETER DEV NAME(LOC) 3EC; GLUCOSE,POINT OF CARE 225 MG/DL (70-110)
[2017-08-30] MEDS: INSULIN LISPRO 100 UNITS/ML SQ PRN ×2 (11:56→21:13)
[2017-08-30 16:00] VITALS: BP 115/77
[2017-08-30 16:27] LABS: GLUCOMETER DEV NAME(LOC) 3EC; GLUCOSE,POINT OF CARE 126 MG/DL (70-110)
[2017-08-30] MEDS: MetFORMIN HCL 500 MG TABLET PO SCH (16:36)
[2017-08-30] MEDS: DIVALPROEX SODIUM 500 MG DR TABLET PO SCH (21:02)
[2017-08-30] MEDS: OLANZapine 10 MG TABLET PO SCH (21:02)
[2017-08-30 21:18] LABS: GLUCOMETER DEV NAME(LOC) 3EC; GLUCOSE,POINT OF CARE 206 MG/DL (70-110)
[2017-08-31 06:17] LABS: GLUCOMETER DEV NAME(LOC) 3EC; GLUCOSE,POINT OF CARE 142 MG/DL (70-110)
[2017-08-31] MEDS: GlipiZIDE 5 MG TABLET PO SCH (06:49)
[2017-08-31] MEDS: INSULIN LISPRO 100 UNITS/ML SQ PRN ×3 (06:50→16:40)
[2017-08-31] MEDS: CLOPIDOGREL BISULFATE 75 MG TABLET PO SCH (08:04)
[2017-08-31] MEDS: RANITIDINE HCL 150 MG TABLET PO SCH (08:04)
[2017-08-31] MEDS: ATORVASTATIN CALCIUM 40 MG TABLET PO SCH (08:04)
[2017-08-31] MEDS: CARVEDILOL 6.25 MG TABLET PO SCH ×2 (08:04→16:19)
[2017-08-31] MEDS: FENOFIBRATE 48 MG TABLET PO SCH (08:04)
[2017-08-31] MEDS: MULTIVITAMINS WITH IRON TABLET PO SCH (08:04)
[2017-08-31] MEDS: CITALOPRAM HYDROBROMIDE 10 MG TABLET PO SCH (08:05)
[2017-08-31] MEDS: LISINOPRIL 5 MG TABLET PO SCH (08:05)
[2017-08-31 08:11] VITALS: BP 148/79
[2017-08-31 11:52] LABS: GLUCOMETER DEV NAME(LOC) 3EC; GLUCOSE,POINT OF CARE 183 MG/DL (70-110)
[2017-08-31] MEDS ORDERED: CITA10TA68 PO (15:24)
[2017-08-31] MEDS ORDERED: GLIP5 PO (15:24)
[2017-08-31] MEDS ORDERED: FENO48TA15 PO (15:24)
[2017-08-31] MEDS ORDERED: DIVA500T35 PO (15:24)
[2017-08-31] MEDS ORDERED: MULT-723 PO (15:24)
[2017-08-31] MEDS: MetFORMIN HCL 500 MG TABLET PO SCH (16:32)
[2017-08-31 16:52] VITALS: BP 126/80
[2017-08-31 17:43] LABS: GLUCOMETER DEV NAME(LOC) 3EC; GLUCOSE,POINT OF CARE 246 MG/DL (70-110)
[2017-08-31] MEDS: OLANZapine 10 MG TABLET PO SCH (20:04)
[2017-08-31] MEDS: DIVALPROEX SODIUM 500 MG DR TABLET PO SCH (20:04)
== END 2017-08-31 18:00 | disposition home or self-care (01) | DRG 885 ==
LOC: EMS 13:55 → 3EC 18:23
PROVIDERS: ADMIT Psychiatry & Neurology Psychiatry; ATTEND Psychiatry & Neurology Psychiatry
DX: F31.9 Bipolar disorder, unspecified (principal); E11.649 Type 2 diabetes mellitus with hypoglycemia without coma; R45.851 Suicidal ideations; E78.00 Pure hypercholesterolemia, unspecified; E11.65 Type 2 diabetes mellitus with hyperglycemia; E78.1 Pure hyperglyceridemia; E78.5 Hyperlipidemia, unspecified; F12.90 Cannabis use, unspecified, uncomplicated; F17.200 Nicotine dependence, unspecified, uncomplicated; F41.1 Generalized anxiety disorder; G47.00 Insomnia, unspecified; I10 Essential (primary) hypertension; J44.9 Chronic obstructive pulmonary disease, unspecified; K21.9 Gastro-esophageal reflux disease without esophagitis; Z79.899 Other long term (current) drug therapy; Z90.49 Acquired absence of other specified parts of digestive tract; Z95.5 Presence of coronary angioplasty implant and graft
CPT/HCPCS: 82652; 83036; 83540; 83550; 84443; 99285; G0480

== ENCOUNTER 2017-09-11 10:11 | Emergency (ER) | payer SELFPAY ==
[~2017-09-11] VITALS: Ht 149.9 cm; Wt 60.9 kg
[~2017-09-11 10:11] MED LIST changes: +CITA10TA68 PO; -FLUO-191 PO; +MULT-723 PO
[2017-09-11 12:15] VITALS: BP 135/77
== END 2017-09-11 12:31 | disposition home or self-care (01) ==
LOC: EMS 10:13
DX: M54.5 Low back pain (principal); F31.9 Bipolar disorder, unspecified; F20.9 Schizophrenia, unspecified; I10 Essential (primary) hypertension; E78.00 Pure hypercholesterolemia, unspecified; E11.9 Type 2 diabetes mellitus without complications; K21.9 Gastro-esophageal reflux disease without esophagitis; F17.210 Nicotine dependence, cigarettes, uncomplicated
CPT/HCPCS: 99283; 99406

== ENCOUNTER 2017-09-16 17:13 | Emergency (ER) | payer SELFPAY ==
[~2017-09-16] VITALS: Ht 162.6 cm; Wt 65.9 kg
[2017-09-16 18:02] LABS: BASOPHILS % (AUTO) 0.3 % (0.0-2.0); EOSINOPHILS % (AUTO) 0.1 % (1.0-6.0); HEMATOCRIT 30.7 % (41-53); HEMOGLOBIN 10.8 g/dL (13.5-17.5); LYMPHOCYTES # (AUTO) 1.1 K/uL (1.0-4.8); LYMPHOCYTES % (AUTO) 13.1 % (22.0-44.0); MEAN CORPUSCULAR HEMOGLOBIN 31.7 pg (26.0-34.0); MEAN CORPUSCULAR HGB CONC 35.3 G/dL (31.0-37.0); MEAN CORPUSCULAR VOLUME 90 fL (80-100); MONOCYTES # (AUTO) 0.3 K/uL (0.1-1.0); MONOCYTES % (AUTO) 3.2 % (2.0-9.0); NEUTROPHILS # (AUTO) 6.9 K/uL (1.8-7.7); NEUTROPHILS % (AUTO) 83.3 % (40.0-70.0); PLATELET COUNT (AUTO) 371 K/uL (150-450); RED BLOOD CELL COUNT(AUTO) 3.41 MIL/uL (4.50-5.90)
[2017-09-16 18:09] LABS: ANION GAP 8 mmol/L (8-16); CALCIUM, TOTAL 10.1 mg/dL (8.8-10.5); CARBON DIOXIDE 23 mmol/L (22-29); CHLORIDE 106 mmol/L (98-107); CREATININE 1.31 mg/dL (0.60-1.30); GLOMERULAR FILTR. RATE CALC 57 mL/min (>60); GLUCOSE,RANDOM 200 mg/dL (70-110); POTASSIUM 4.8 mmol/L (3.5-5.1); SODIUM SERUM 137 mmol/L (136-145); UREA NITROGEN, BLOOD 32 mg/dL (7-18)
[2017-09-16 18:14] LABS: ALANINE AMINOTRANSFERASE 37 U/L (12-78); ALBUMIN 3.6 g/dL (3.4-5.0); ALKALINE PHOSPHATASE 90 U/L (46-116); ASPARTATE AMINOTRANSFERASE 18 U/L (15-37); BILIRUBIN,TOTAL 0.4 mg/dL (0.1-1.0); LIPASE 254 U/L (73-393); TOTAL PROTEIN, SERUM 7.3 g/dL (6.4-8.2)
[2017-09-16 18:15] LABS: PROTHROMBIN TIME 10.5 SEC (9.4-11.6)
[2017-09-16 18:30] LABS: VALPROIC ACID < 3 mcg/mL (50-100)
[2017-09-16 18:38] LABS: PLATELET MORPHOLOGY COMMENT LARGE PLTS PRESENT
[2017-09-16 18:49] LABS: APPEARANCE,URINE CLEAR (CLEAR); BILIRUBIN,URINE NEGATIVE (NEGATIVE); GLUCOSE, URINE (UA) NEGATIVE (NEGATIVE); KETONES,URINE NEGATIVE (NEGATIVE); LEUKOCYTE ESTERASE ,URINE NEGATIVE (NEGATIVE); NITRATE,URINE NEGATIVE (NEGATIVE); OCCULT BLOOD,URINE NEGATIVE (NEGATIVE); PH,URINE 8.5 (5.0-8.0); PROTEIN,URINE POS 1+ (NEGATIVE)
[2017-09-16 18:51] LABS: AMPHET/METH SCREEN,URINE NEGATIVE (NEGATIVE); BARBITURATE SCREEN, URINE NEGATIVE (NEGATIVE); BENZODIAZEPINES SCREEN,URINE NEGATIVE (NEGATIVE); CANNABINOID SCREEN,URINE POSITIVE (NEGATIVE); COCAINE SCREEN,URINE NEGATIVE (NEGATIVE); METHADONE SCREEN, URINE NEGATIVE (NEGATIVE); OPIATE SCREEN,URINE NEGATIVE (NEGATIVE); PHENCYCLIDINE SCREEN,URINE NEGATIVE (NEGATIVE)
[2017-09-16] MEDS ORDERED: ONDANSETRON HCL 4 MG/2 ML VIAL IVP ONE (19:30)
[2017-09-16] MEDS ORDERED: HALOPERIDOL LACTATE 5 MG/ML VIAL IVP ONE (19:30)
[2017-09-16] MEDS ORDERED: DiphenhydrAMINE HCL 50 MG/ML VIAL IVP ONE (19:30)
[2017-09-16] MEDS ORDERED: TraMADol HCL 50 MG TABLET PO ONE (21:15)
[2017-09-16 21:18] VITALS: BP 164/79
== END 2017-09-16 21:44 | disposition home or self-care (01) ==
LOC: EMS 17:15
DX: K29.70 Gastritis, unspecified, without bleeding (principal); F25.9 Schizoaffective disorder, unspecified; K21.9 Gastro-esophageal reflux disease without esophagitis; F12.90 Cannabis use, unspecified, uncomplicated; G89.29 Other chronic pain; F17.210 Nicotine dependence, cigarettes, uncomplicated; E11.9 Type 2 diabetes mellitus without complications; E78.00 Pure hypercholesterolemia, unspecified; I10 Essential (primary) hypertension; F31.9 Bipolar disorder, unspecified
CPT/HCPCS: 36415; 71045; 74018; 80053; 80164; 80307; 81003; 83690; 84484; 85025; 85610; 85730; 93005; 96374; 96375; 99285; G0480; J1200; J1630; J2405

== ENCOUNTER 2018-04-21 03:05 | Emergency (ER) | payer OTHER ==
[~2018-04-21] VITALS: Ht 162.6 cm; Wt 65.9 kg
[~2018-04-21 03:05] MED LIST changes: +DIVA-78 PO; -DIVA500T35 PO; +METF-960 PO; -METF500T6 PO
[2018-04-21 08:17] VITALS: BP 150/90
== END 2018-04-21 08:21 | disposition home or self-care (01) ==
LOC: EMS 03:06
DX: G62.9 Polyneuropathy, unspecified (principal); R20.0 Anesthesia of skin; F31.9 Bipolar disorder, unspecified; E11.9 Type 2 diabetes mellitus without complications; K21.9 Gastro-esophageal reflux disease without esophagitis; E78.00 Pure hypercholesterolemia, unspecified; I10 Essential (primary) hypertension; F20.9 Schizophrenia, unspecified; F17.210 Nicotine dependence, cigarettes, uncomplicated; Z90.49 Acquired absence of other specified parts of digestive tract; Z79.84 Long term (current) use of oral hypoglycemic drugs; Z79.899 Other long term (current) drug therapy
CPT/HCPCS: 70450

== ENCOUNTER 2022-12-14 18:39 | Inpatient (IN) | payer OTHER ==
[~2022-12-14] VITALS: Ht 162.6 cm; Wt 68.2 kg
[~2022-12-14 18:39] MED LIST changes: -CITA10TA68 PO; -CLOP75 PO; +CLOP75TA60 PO; +DIVA-112 PO; -DIVA-78 PO; +FENO48TA12 PO; -FENO48TA15 PO; -GLIP5 PO; +GLIP5TAB12 PO; -LISI-660 PO; +LISI-892 PO; +METF-1211 PO; -METF-960 PO; -MULT-723 PO; -OLAN20TA2 PO; +QUET200T PO; -RANI150T7 PO
[2022-12-14] MEDS ORDERED: LABETALOL HCL 5 MG/ML 20 ML VIAL IVP PRN ×2 (18:45)
[2022-12-14] MEDS ORDERED: IOHEXOL 350 MG/ML 100 ML VIAL ONE (18:54)
[2022-12-14] MEDS ORDERED: SODIUM CHLORIDE 0.9% 100 ML ONE (18:54)
[2022-12-14 19:27] LABS: BASOPHILS % (AUTO) 0.1 % (0.0-2.0); EOSINOPHILS % (AUTO) 0.6 % (1.0-6.0); LYMPHOCYTES # (AUTO) 1.3 K/uL (1.0-4.8); LYMPHOCYTES % (AUTO) 17.3 % (22.0-44.0); MEAN CORPUSCULAR HEMOGLOBIN 31.5 pg (26.0-34.0); MEAN CORPUSCULAR HGB CONC 33.4 G/dL (31.0-37.0); MEAN CORPUSCULAR VOLUME 94 fL (80-100); MONOCYTES # (AUTO) 0.4 K/uL (0.1-1.0); MONOCYTES % (AUTO) 4.9 % (2.0-9.0); NEUTROPHILS # (AUTO) 5.6 K/uL (1.8-7.7); NEUTROPHILS % (AUTO) 77.1 % (40.0-70.0); PLATELET COUNT (AUTO) 310 K/uL (150-450); RED CELL DISTRIBUTION WIDTH 14.1 % (11.5-14.5); WHITE BLOOD COUNT (AUTO) 7.2 K/uL (4.5-11.0)
[2022-12-14 19:33] LABS: CALCIUM, TOTAL 8.5 mg/dL (8.8-10.5); CREATININE 2.43 mg/dL (0.60-1.30); POTASSIUM 5.4 mmol/L (3.5-5.1)
[2022-12-14 19:38] LABS: PROTHROMBIN TIME 10.9 SEC (9.4-11.6)
[2022-12-14 19:40] LABS: ALBUMIN 3.2 g/dL (3.4-5.0); BILIRUBIN,TOTAL 0.2 mg/dL (0.1-1.0); TOTAL PROTEIN, SERUM 5.9 g/dL (6.4-8.2)
[2022-12-14 19:42] LABS: HEMOGLOBIN 5.7 g/dL (13.5-17.5)
[2022-12-14 20:53] LABS: TROPONIN I-HIGH SENSITIVITY 7 ng/L (<76)
[2022-12-14] MEDS: DOCUSATE SODIUM 100 MG CAPSULE PO SCH (21:00)
[2022-12-14] MEDS ORDERED: DEXTROSE 50%-WATER 25 GM/50 ML SYRINGE IVP PRN (21:00)
[2022-12-14] MEDS ORDERED: ACETAMINOPHEN 325 MG TABLET PO PRN (21:00)
[2022-12-14] MEDS ORDERED: MORPHINE SULFATE 2 MG/ML SYRINGE IVP PRN (21:00)
[2022-12-14] MEDS ORDERED: HYDROCODONE/ACETAMINOPHEN 5-325 MG TABLET PO PRN (21:00)
[2022-12-14] MEDS ORDERED: ONDANSETRON HCL 4 MG/2 ML VIAL IVP PRN (21:00)
[2022-12-14] MEDS ORDERED: BISACODYL 10 MG RECTAL RECTAL SUPPOSITORY PR PRN (21:00)
[2022-12-14 21:02] LABS: APPEARANCE,URINE CLEAR (CLEAR); BILIRUBIN,URINE NEGATIVE (NEGATIVE); COLOR,URINE LIGHT YELLOW (YELLOW); GLUCOSE, URINE (UA) NEGATIVE (NEGATIVE); KETONES,URINE NEGATIVE (NEGATIVE); LEUKOCYTE ESTERASE ,URINE NEGATIVE (NEGATIVE); NITRATE,URINE NEGATIVE (NEGATIVE); OCCULT BLOOD,URINE NEGATIVE (NEGATIVE); PROTEIN,URINE NEGATIVE (NEGATIVE); SPECIFIC GRAVITIY, URINE 1.025 (1.003-1.030); UROBILINOGEN,URINE <=1.0 mg/dL (<=1.0)
[2022-12-14 21:07] LABS: ALCOHOL, URINE DRUG SCREEN NEGATIVE (NEGATIVE); AMPHET/METH SCREEN,URINE NEGATIVE (NEGATIVE); BARBITURATE SCREEN, URINE NEGATIVE (NEGATIVE); BENZODIAZEPINES SCREEN,URINE NEGATIVE (NEGATIVE); CANNABINOID SCREEN,URINE POSITIVE (NEGATIVE); COCAINE SCREEN,URINE NEGATIVE (NEGATIVE); METHADONE SCREEN, URINE NEGATIVE (NEGATIVE); OPIATE SCREEN,URINE POSITIVE (NEGATIVE); PHENCYCLIDINE SCREEN,URINE NEGATIVE (NEGATIVE)
[2022-12-14 21:45] VITALS: BP 100/59; PULSE 96; RESP 14; TEMP 98.1
[2022-12-14 22:00] VITALS: BP 101/57; PULSE 90; RESP 12; TEMP 97.8
[2022-12-14 22:01] LABS: BACTERIA,URINE None Seen /HPF (None Seen); RBC,URINE None Seen /HPF (0-2); WBC,URINE None Seen /HPF (0-5)
[2022-12-14 22:15] VITALS: BP 100/52; PULSE 91; RESP 10; TEMP 97.7
[2022-12-14 22:30] VITALS: BP 92/51; PULSE 90; RESP 11; TEMP 97.7
[2022-12-14 23:00] VITALS: BP 92/58; PULSE 85; RESP 14; TEMP 97.1
[2022-12-15] VITALS (9 sets, daily range): BP systolic 93–148; BP diastolic 54–76; PULSE 84–95; RESP 11–18; TEMP 97.1–98.8
[2022-12-15] MEDS: HEPARIN SODIUM,PORCINE 5,000 UNITS/ML VIAL SQ SCH ×4 (01:55→23:25)
[2022-12-15 05:24] LABS: BASOPHILS % (AUTO) 0.1 % (0.0-2.0); EOSINOPHILS % (AUTO) 1.1 % (1.0-6.0); HEMATOCRIT 27.6 % (41-53); HEMOGLOBIN 9.3 g/dL (13.5-17.5); LYMPHOCYTES # (AUTO) 1.4 K/uL (1.0-4.8); LYMPHOCYTES % (AUTO) 18.7 % (22.0-44.0); MEAN CORPUSCULAR HEMOGLOBIN 31.2 pg (26.0-34.0); MEAN CORPUSCULAR HGB CONC 33.6 G/dL (31.0-37.0); MEAN CORPUSCULAR VOLUME 93 fL (80-100); MONOCYTES # (AUTO) 0.4 K/uL (0.1-1.0); MONOCYTES % (AUTO) 4.8 % (2.0-9.0); NEUTROPHILS # (AUTO) 5.8 K/uL (1.8-7.7); NEUTROPHILS % (AUTO) 75.3 % (40.0-70.0); PLATELET COUNT (AUTO) 302 K/uL (150-450); RED BLOOD CELL COUNT(AUTO) 2.97 MIL/uL (4.50-5.90); RED CELL DISTRIBUTION WIDTH 14.7 % (11.5-14.5); WHITE BLOOD COUNT (AUTO) 7.7 K/uL (4.5-11.0)
[2022-12-15 05:31] LABS: CALCIUM, TOTAL 8.6 mg/dL (8.8-10.5); CREATININE 1.41 mg/dL (0.60-1.30); POTASSIUM 4.7 mmol/L (3.5-5.1)
[2022-12-15] MEDS: FENOFIBRATE 48 MG TABLET PO SCH (08:02)
[2022-12-15] MEDS: DOCUSATE SODIUM 100 MG CAPSULE PO SCH ×2 (08:02→20:05)
[2022-12-15] MEDS: ATORVASTATIN CALCIUM 40 MG TABLET PO SCH (08:02)
[2022-12-15] MEDS: ASPIRIN 81 MG CHEWABLE TABLET PO SCH (08:02)
[2022-12-15] MEDS: PANTOPRAZOLE SODIUM 40 MG DR TABLET PO SCH (08:02)
[2022-12-15 09:55] LABS: GLUCOMETER DEV NAME(LOC) ER.6; GLUCOSE,POINT OF CARE 77 MG/DL (70-110)
[2022-12-15 19:56] LABS: GLUCOMETER DEV NAME(LOC) 5N.2C; GLUCOSE,POINT OF CARE 258 MG/DL (70-110)
[2022-12-15] MEDS: INSULIN LISPRO 100 UNITS/ML SQ PRN (20:06)
[2022-12-15 21:56] LABS: APPEARANCE,URINE CLEAR (CLEAR); BILIRUBIN,URINE NEGATIVE (NEGATIVE); COLOR,URINE LIGHT YELLOW (YELLOW); GLUCOSE, URINE (UA) >=1000 mg/dL (NEGATIVE); KETONES,URINE TRACE mg/dL (NEGATIVE); LEUKOCYTE ESTERASE ,URINE NEGATIVE (NEGATIVE); NITRATE,URINE NEGATIVE (NEGATIVE); OCCULT BLOOD,URINE TRACE (NEGATIVE); PH,URINE 5.5 (5.0-8.0); PROTEIN,URINE NEGATIVE (NEGATIVE); SPECIFIC GRAVITIY, URINE 1.014 (1.003-1.030); UROBILINOGEN,URINE <=1.0 mg/dL (<=1.0)
[2022-12-15 21:59] LABS: CREATININE,URINE RANDOM 46.4 mg/dL (30.0-125.0)
[2022-12-15 22:15] LABS: AMORPHOUS SEDIMENT,UR Few /LPF (None Seen); BACTERIA,URINE None Seen /HPF (None Seen); RBC,URINE 0-2 /HPF (0-2); SQUAMOUS EPITHELIAL CELL,UR Rare /LPF (None Seen); WBC,URINE None Seen /HPF (0-5)
[2022-12-15] MEDS: ZOLPIDEM TARTRATE 5 MG TABLET PO PRN (23:24)
[2022-12-16] VITALS: BP 105/56; PULSE 83; RESP 18; TEMP 98.6
[2022-12-16 00:51] LABS: GLUCOMETER DEV NAME(LOC) 5N.1C; GLUCOSE,POINT OF CARE 211 MG/DL (70-110)
[2022-12-16 04:07] VITALS: BP 118/61; PULSE 76; RESP 18; TEMP 97.9
[2022-12-16 06:47] LABS: BASOPHILS % (AUTO) 0.3 % (0.0-2.0); EOSINOPHILS % (AUTO) 2.1 % (1.0-6.0); HEMATOCRIT 27.7 % (41-53); HEMOGLOBIN 9.6 g/dL (13.5-17.5); LYMPHOCYTES # (AUTO) 1.1 K/uL (1.0-4.8); LYMPHOCYTES % (AUTO) 23.9 % (22.0-44.0); MEAN CORPUSCULAR HEMOGLOBIN 31.7 pg (26.0-34.0); MEAN CORPUSCULAR HGB CONC 34.6 G/dL (31.0-37.0); MEAN CORPUSCULAR VOLUME 92 fL (80-100); MONOCYTES # (AUTO) 0.5 K/uL (0.1-1.0); MONOCYTES % (AUTO) 9.7 % (2.0-9.0); NEUTROPHILS # (AUTO) 3.1 K/uL (1.8-7.7); PLATELET COUNT (AUTO) 279 K/uL (150-450); RED BLOOD CELL COUNT(AUTO) 3.03 MIL/uL (4.50-5.90); RED CELL DISTRIBUTION WIDTH 14.2 % (11.5-14.5); WHITE BLOOD COUNT (AUTO) 4.8 K/uL (4.5-11.0)
[2022-12-16 07:02] LABS: POTASSIUM 5.3 mmol/L (3.5-5.1); SODIUM SERUM 132 mmol/L (136-145)
[2022-12-16 07:05] LABS: ANION GAP 7 mmol/L (8-16); CARBON DIOXIDE 24 mmol/L (22-29); CHLORIDE 101 mmol/L (98-107); CREATININE 0.95 mg/dL (0.60-1.30); GLOMERULAR FILTR. RATE CALC > 60 mL/min (>60); GLUCOSE,RANDOM 135 mg/dL (70-110); UREA NITROGEN, BLOOD 30 mg/dL (7-18)
[2022-12-16 07:21] LABS: PHOSPHORUS 3.3 mg/dL (2.5-4.9)
[2022-12-16 07:49] VITALS: BP 134/75; PULSE 97; RESP 18; TEMP 98
[2022-12-16] MEDS: HEPARIN SODIUM,PORCINE 5,000 UNITS/ML VIAL SQ SCH ×2 (08:20→16:41)
[2022-12-16] MEDS: PANTOPRAZOLE SODIUM 40 MG DR TABLET PO SCH (08:20)
[2022-12-16] MEDS: DOCUSATE SODIUM 100 MG CAPSULE PO SCH ×2 (08:20→20:53)
[2022-12-16] MEDS: FENOFIBRATE 48 MG TABLET PO SCH (08:21)
[2022-12-16] MEDS: ATORVASTATIN CALCIUM 40 MG TABLET PO SCH (08:21)
[2022-12-16] MEDS: ASPIRIN 81 MG CHEWABLE TABLET PO SCH (09:00)
[2022-12-16 11:41] VITALS: BP 153/68; PULSE 90; RESP 18; TEMP 98
[2022-12-16] MEDS ORDERED: SODIUM POLYSTYRENE SULFONATE 15 GM/60 ML SUSPENSION BOTTLE PO ONE (14:30)
[2022-12-16 15:27] VITALS: BP 153/87; PULSE 90; RESP 18; TEMP 98
[2022-12-16] MEDS: INSULIN LISPRO 100 UNITS/ML SQ PRN ×2 (18:13→20:54)
[2022-12-16] MEDS: MAGNESIUM HYDROXIDE SUSPENSION 30 ML UDCUP PO PRN (18:25)
[2022-12-16 18:42] LABS: GLUCOMETER DEV NAME(LOC) 5S.2C; GLUCOSE,POINT OF CARE 139 MG/DL (70-110)
[2022-12-16 20:00] VITALS: BP 154/83; PULSE 76; RESP 18; TEMP 98.4
[2022-12-16 20:01] LABS: GLUCOMETER DEV NAME(LOC) 5N.1C; GLUCOSE,POINT OF CARE 172 MG/DL (70-110)
[2022-12-16] MEDS: ZOLPIDEM TARTRATE 5 MG TABLET PO PRN (21:03)
[2022-12-17] VITALS: BP 167/96; PULSE 74; RESP 20; TEMP 98.5
[2022-12-17] MEDS: HEPARIN SODIUM,PORCINE 5,000 UNITS/ML VIAL SQ SCH ×2 (00:42→08:18)
[2022-12-17] MEDS ORDERED: HydrALAZINE HCL 20 MG/ML VIAL IVP PRN (01:00)
[2022-12-17 01:26] LABS: GLUCOMETER DEV NAME(LOC) 5N.2C; GLUCOSE,POINT OF CARE 158 MG/DL (70-110)
[2022-12-17 04:00] VITALS: BP 151/76; PULSE 72; RESP 18; TEMP 98.4
[2022-12-17] MEDS: INSULIN LISPRO 100 UNITS/ML SQ PRN ×2 (06:24→12:35)
[2022-12-17 06:51] LABS: BASOPHILS % (AUTO) 0.3 % (0.0-2.0); EOSINOPHILS % (AUTO) 1.7 % (1.0-6.0); HEMATOCRIT 30.7 % (41-53); HEMOGLOBIN 10.7 g/dL (13.5-17.5); LYMPHOCYTES # (AUTO) 1.3 K/uL (1.0-4.8); MEAN CORPUSCULAR HEMOGLOBIN 31.7 pg (26.0-34.0); MEAN CORPUSCULAR HGB CONC 34.8 G/dL (31.0-37.0); MEAN CORPUSCULAR VOLUME 91 fL (80-100); MONOCYTES # (AUTO) 0.3 K/uL (0.1-1.0); MONOCYTES % (AUTO) 8.3 % (2.0-9.0); NEUTROPHILS # (AUTO) 2.4 K/uL (1.8-7.7); NEUTROPHILS % (AUTO) 57.7 % (40.0-70.0); PLATELET COUNT (AUTO) 305 K/uL (150-450); RED BLOOD CELL COUNT(AUTO) 3.37 MIL/uL (4.50-5.90); RED CELL DISTRIBUTION WIDTH 13.4 % (11.5-14.5); WHITE BLOOD COUNT (AUTO) 4.1 K/uL (4.5-11.0)
[2022-12-17 07:03] LABS: ANION GAP 9 mmol/L (8-16); CALCIUM, TOTAL 9.6 mg/dL (8.8-10.5); CARBON DIOXIDE 26 mmol/L (22-29); CHLORIDE 98 mmol/L (98-107); CREATININE 0.74 mg/dL (0.60-1.30); GLOMERULAR FILTR. RATE CALC > 60 mL/min (>60); GLUCOSE,RANDOM 148 mg/dL (70-110); POTASSIUM 4.7 mmol/L (3.5-5.1); SODIUM SERUM 133 mmol/L (136-145); UREA NITROGEN, BLOOD 20 mg/dL (7-18)
[2022-12-17 07:32] VITALS: BP 152/88; PULSE 73; RESP 18; TEMP 98.5
[2022-12-17] MEDS: ATORVASTATIN CALCIUM 40 MG TABLET PO SCH (08:17)
[2022-12-17] MEDS: DOCUSATE SODIUM 100 MG CAPSULE PO SCH (08:17)
[2022-12-17] MEDS: PANTOPRAZOLE SODIUM 40 MG DR TABLET PO SCH (08:17)
[2022-12-17] MEDS: ASPIRIN 81 MG CHEWABLE TABLET PO SCH (08:18)
[2022-12-17] MEDS: MAGNESIUM HYDROXIDE SUSPENSION 30 ML UDCUP PO PRN (08:18)
[2022-12-17] MEDS: FENOFIBRATE 48 MG TABLET PO SCH (08:46)
[2022-12-17 11:29] VITALS: BP 124/67; PULSE 81; RESP 18; TEMP 98
[2022-12-17 12:46] LABS: GLUCOMETER DEV NAME(LOC) 5S.2C; GLUCOSE,POINT OF CARE 161 MG/DL (70-110)
[2022-12-17] MEDS ORDERED: CARV3 PO (13:37)
[2022-12-17] MEDS ORDERED: QUET300T2 PO (13:38)
[2022-12-18 00:31] LABS: GLUCOMETER DEV NAME(LOC) 5N.1C; GLUCOSE,POINT OF CARE 151 MG/DL (70-110)
[2022-12-18 07:07] LABS: HEPATITIS C AB (EIA) Non Reactive (Non Reactive)
== END 2022-12-17 14:15 | DRG 682 ==
LOC: EMS 18:39 → AHU 12-15 07:45 → 5S 12-15 13:51
PROVIDERS: ADMIT Internal Medicine; ATTEND Internal Medicine
PROC: 30233N1 Transfusion of Nonautologous Red Blood Cells into Peripheral Vein, Percutaneous Approach (ICD-10-PCS; principal; 2022-12-15)
DX: N17.9 Acute kidney failure, unspecified (principal); G93.41 Metabolic encephalopathy; N18.9 Chronic kidney disease, unspecified; K21.9 Gastro-esophageal reflux disease without esophagitis; J44.9 Chronic obstructive pulmonary disease, unspecified; E11.22 Type 2 diabetes mellitus with diabetic chronic kidney disease; E87.5 Hyperkalemia; I12.9 Hypertensive chronic kidney disease with stage 1 through stage 4 chronic kidney disease, or unspecified chronic kidney disease; E78.00 Pure hypercholesterolemia, unspecified; I65.23 Occlusion and stenosis of bilateral carotid arteries; E78.5 Hyperlipidemia, unspecified; D63.8 Anemia in other chronic diseases classified elsewhere; F31.9 Bipolar disorder, unspecified; F20.9 Schizophrenia, unspecified; I25.10 Atherosclerotic heart disease of native coronary artery without angina pectoris; F17.210 Nicotine dependence, cigarettes, uncomplicated; Z79.899 Other long term (current) drug therapy; Z90.49 Acquired absence of other specified parts of digestive tract; Z79.02 Long term (current) use of antithrombotics/antiplatelets
CPT/HCPCS: 70496; 70498; 71045; 76770; 80048; 80053; 80307; 81001; 82271; 82570; 82948; 82962; 83735; 84100; 84300; 84484; 84540; 85025; 85610; 85730; 86803; 86850; 86900; 86901; 86923; 87340; 92610; 93005; 97110; 97116; 97162; 97165; 97530; 97535; 99285; J1644; J2270; J2405; J7050; P9016; Q9967; 36415-L1; 36415-TC; 70450; 70450-TC

== ENCOUNTER 2023-01-31 20:40 | Emergency (ER) | payer MEDICARE, OTHER ==
[~2023-01-31] VITALS: Ht 167.6 cm; Wt 59.0 kg
[~2023-01-31 20:40] MED LIST changes: +CARV3 PO; -GLIP5TAB12 PO; +GLIP5TAB16 PO; +QUET300T2 PO
[2023-02-01 00:15] LABS: BASOPHILS % (AUTO) 0.3 % (0.0-2.0); EOSINOPHILS % (AUTO) 0.9 % (1.0-6.0); HEMATOCRIT 29.8 % (41-53); HEMOGLOBIN 10.2 g/dL (13.5-17.5); LYMPHOCYTES # (AUTO) 1.5 K/uL (1.0-4.8); LYMPHOCYTES % (AUTO) 30.1 % (22.0-44.0); MEAN CORPUSCULAR HEMOGLOBIN 30.9 pg (26.0-34.0); MEAN CORPUSCULAR HGB CONC 34.1 G/dL (31.0-37.0); MEAN CORPUSCULAR VOLUME 91 fL (80-100); MONOCYTES # (AUTO) 0.4 K/uL (0.1-1.0); MONOCYTES % (AUTO) 7.8 % (2.0-9.0); NEUTROPHILS # (AUTO) 3.1 K/uL (1.8-7.7); NEUTROPHILS % (AUTO) 60.9 % (40.0-70.0); PLATELET COUNT (AUTO) 365 K/uL (150-450); RED BLOOD CELL COUNT(AUTO) 3.29 MIL/uL (4.50-5.90); RED CELL DISTRIBUTION WIDTH 14.4 % (11.5-14.5); WHITE BLOOD COUNT (AUTO) 5.1 K/uL (4.5-11.0)
[2023-02-01] MEDS ORDERED: QUEtiapine FUMARATE 100 MG TABLET PO ONE (00:15)
[2023-02-01 00:24] LABS: ANION GAP 7 mmol/L (8-16); CALCIUM, TOTAL 9.8 mg/dL (8.8-10.5); CARBON DIOXIDE 27 mmol/L (22-29); CHLORIDE 98 mmol/L (98-107); CREATININE 0.86 mg/dL (0.60-1.30); GLOMERULAR FILTR. RATE CALC > 60 mL/min (>60); GLUCOSE,RANDOM 218 mg/dL (70-110); POTASSIUM 3.4 mmol/L (3.5-5.1); SODIUM SERUM 132 mmol/L (136-145); UREA NITROGEN, BLOOD 36 mg/dL (7-18)
[2023-02-01 00:30] LABS: ALANINE AMINOTRANSFERASE 26 U/L (12-78); ALBUMIN 3.1 g/dL (3.4-5.0); ALKALINE PHOSPHATASE 128 U/L (46-116); ASPARTATE AMINOTRANSFERASE 15 U/L (15-37); BILIRUBIN,TOTAL 0.3 mg/dL (0.1-1.0); TOTAL PROTEIN, SERUM 6.5 g/dL (6.4-8.2)
[2023-02-01 00:49] LABS: ALCOHOL, BLOOD (SERUM) < 3 mg/dL (0-10)
[2023-02-01 03:00] VITALS: BP 131/80; PULSE 80; RESP 16
== END 2023-02-01 04:52 | disposition home or self-care (01) ==
LOC: EMS 20:41
DX: F20.9 Schizophrenia, unspecified (principal); F31.9 Bipolar disorder, unspecified; E11.9 Type 2 diabetes mellitus without complications; E78.00 Pure hypercholesterolemia, unspecified; I10 Essential (primary) hypertension; F17.210 Nicotine dependence, cigarettes, uncomplicated; Z90.49 Acquired absence of other specified parts of digestive tract; Z98.890 Other specified postprocedural states
CPT/HCPCS: 99285; 80053; 85025; 36415; G0480

== ENCOUNTER 2023-09-05 10:39 | Inpatient (IN) | payer MEDICARE, MEDICAID ==
[~2023-09-05] VITALS: Ht 162.6 cm; Wt 63.6 kg
[2023-09-05 11:29] LABS: ANION GAP 9 mmol/L (8-16); CARBON DIOXIDE 26 mmol/L (22-29); CHLORIDE 101 mmol/L (98-107); CREATININE 1.51 mg/dL (0.60-1.30); GLOMERULAR FILTR. RATE CALC 48 mL/min (>60); GLUCOSE,RANDOM 293 mg/dL (70-110); POTASSIUM 4.9 mmol/L (3.5-5.1); SODIUM SERUM 136 mmol/L (136-145); UREA NITROGEN, BLOOD 38 mg/dL (7-18)
[2023-09-05 11:33] LABS: BASOPHILS % (AUTO) 0.2 % (0.0-2.0); EOSINOPHILS % (AUTO) 0.8 % (1.0-6.0); HEMATOCRIT 33.1 % (41-53); HEMOGLOBIN 11.2 g/dL (13.5-17.5); LYMPHOCYTES # (AUTO) 1.5 K/uL (1.0-4.8); LYMPHOCYTES % (AUTO) 21.4 % (22.0-44.0); MEAN CORPUSCULAR HEMOGLOBIN 29.9 pg (26.0-34.0); MEAN CORPUSCULAR HGB CONC 33.7 G/dL (31.0-37.0); MEAN CORPUSCULAR VOLUME 89 fL (80-100); MONOCYTES # (AUTO) 0.5 K/uL (0.1-1.0); MONOCYTES % (AUTO) 6.7 % (2.0-9.0); NEUTROPHILS % (AUTO) 70.9 % (40.0-70.0); PLATELET COUNT (AUTO) 341 K/uL (150-450); RED BLOOD CELL COUNT(AUTO) 3.74 MIL/uL (4.50-5.90); RED CELL DISTRIBUTION WIDTH 13.7 % (11.5-14.5); WHITE BLOOD COUNT (AUTO) 7.1 K/uL (4.5-11.0)
[2023-09-05 13:22] LABS: ALCOHOL, BLOOD (SERUM) < 3 mg/dL (0-10)
[2023-09-05] MEDS: QUEtiapine FUMARATE 100 MG TABLET PO PRN (14:03)
[2023-09-05] MEDS: LORazepam 2 MG TABLET PO PRN (14:03)
[2023-09-05] MEDS: ACETAMINOPHEN 500 MG TABLET PO ONE (15:13)
[2023-09-05] MEDS: LIDOCAINE 5% TRANSDERMAL PATCH TD ONE (15:42)
[2023-09-06] MEDS: ZOLPIDEM TARTRATE 10 MG TABLET PO PRN (00:41)
[2023-09-06] MEDS: ACETAMINOPHEN 325 MG TABLET PO ONE (08:38)
[2023-09-06] MEDS: LIDOCAINE 5% TRANSDERMAL PATCH TD ONE (08:39)
[2023-09-06 08:51] LABS: COVID AG,FIA SOURCE NASAL SWAB
[2023-09-06 09:14] LABS: SARS-COV2 (COVID) ANTIGEN,FIA Negative (Negative)
[2023-09-06] MEDS: ONDANSETRON HCL 4 MG TABLET PO ONE (11:52)
[2023-09-06] MEDS: ACETAMINOPHEN 500 MG TABLET PO ONE (16:15)
[2023-09-06] MEDS: ONDANSETRON HCL 4 MG/2 ML VIAL IM ONE (16:57)
[2023-09-06 17:50] LABS: CARBON DIOXIDE 26 mmol/L (22-29); CHLORIDE 97 mmol/L (98-107); POTASSIUM 4.5 mmol/L (3.5-5.1); SODIUM SERUM 136 mmol/L (136-145)
[2023-09-06 17:51] LABS: ANION GAP 13 mmol/L (8-16); CALCIUM, TOTAL 10.9 mg/dL (8.8-10.5); CREATININE 1.19 mg/dL (0.60-1.30); GLOMERULAR FILTR. RATE CALC > 60 mL/min (>60); GLUCOSE,RANDOM 232 mg/dL (70-110); UREA NITROGEN, BLOOD 31 mg/dL (7-18)
[2023-09-06] MEDS: SODIUM CHLORIDE 0.9% 1,000 ML IV ONE (17:52)
[2023-09-06] MEDS: METOCLOPRAMIDE HCL 5 MG/ML 2 ML VIAL IVP ONE (17:52)
[2023-09-06] MEDS: FAMOTIDINE 20 MG/2 ML VIAL IVP ONE (17:52)
[2023-09-06 18:57] LABS: BASOPHILS % (AUTO) 0.1 % (0.0-2.0); EOSINOPHILS % (AUTO) 0.4 % (1.0-6.0); HEMATOCRIT 38.8 % (41-53); LYMPHOCYTES # (AUTO) 1.4 K/uL (1.0-4.8); LYMPHOCYTES % (AUTO) 11.9 % (22.0-44.0); MEAN CORPUSCULAR HEMOGLOBIN 29.6 pg (26.0-34.0); MEAN CORPUSCULAR HGB CONC 33.5 G/dL (31.0-37.0); MEAN CORPUSCULAR VOLUME 88 fL (80-100); MONOCYTES # (AUTO) 0.7 K/uL (0.1-1.0); MONOCYTES % (AUTO) 5.8 % (2.0-9.0); NEUTROPHILS # (AUTO) 9.6 K/uL (1.8-7.7); NEUTROPHILS % (AUTO) 81.8 % (40.0-70.0); PLATELET COUNT (AUTO) 403 K/uL (150-450); RED BLOOD CELL COUNT(AUTO) 4.39 MIL/uL (4.50-5.90); RED CELL DISTRIBUTION WIDTH 13.4 % (11.5-14.5); WHITE BLOOD COUNT (AUTO) 11.7 K/uL (4.5-11.0)
[2023-09-07] MEDS: IBUPROFEN 600 MG TABLET PO ONE (06:02)
[2023-09-07 09:26] LABS: APPEARANCE,URINE CLEAR (CLEAR); BILIRUBIN,URINE NEGATIVE (NEGATIVE); COLOR,URINE LIGHT YELLOW (YELLOW); GLUCOSE, URINE (UA) >=1000 mg/dL (NEGATIVE); KETONES,URINE TRACE mg/dL (NEGATIVE); LEUKOCYTE ESTERASE ,URINE NEGATIVE (NEGATIVE); NITRATE,URINE NEGATIVE (NEGATIVE); OCCULT BLOOD,URINE NEGATIVE (NEGATIVE); PROTEIN,URINE TRACE mg/dL (NEGATIVE); SPECIFIC GRAVITIY, URINE 1.017 (1.003-1.030); UROBILINOGEN,URINE <=1.0 mg/dL (<=1.0)
[2023-09-07 09:39] LABS: BACTERIA,URINE None Seen /HPF (None Seen); RBC,URINE 0-2 /HPF (0-2); SQUAMOUS EPITHELIAL CELL,UR Rare /LPF (None Seen); WBC,URINE 0-2 /HPF (0-5)
[2023-09-07 09:50] LABS: ALCOHOL, URINE DRUG SCREEN NEGATIVE (NEGATIVE); AMPHET/METH SCREEN,URINE NEGATIVE (NEGATIVE); BARBITURATE SCREEN, URINE NEGATIVE (NEGATIVE); BENZODIAZEPINES SCREEN,URINE NEGATIVE (NEGATIVE); CANNABINOID SCREEN,URINE NEGATIVE (NEGATIVE); COCAINE SCREEN,URINE NEGATIVE (NEGATIVE); METHADONE SCREEN, URINE NEGATIVE (NEGATIVE); OPIATE SCREEN,URINE NEGATIVE (NEGATIVE); PHENCYCLIDINE SCREEN,URINE NEGATIVE (NEGATIVE)
[2023-09-07] MEDS: GlipiZIDE 5 MG TABLET PO ONE (10:15)
[2023-09-07] MEDS: MetFORMIN HCL 500 MG TABLET PO ONE (10:15)
[2023-09-07 16:46] LABS: GLUCOMETER DEV NAME(LOC) ERT.5; GLUCOSE,POINT OF CARE 240 MG/DL (70-110)
[2023-09-07 16:46] LABS: GLUCOMETER DEV NAME(LOC) ERT.5; GLUCOSE,POINT OF CARE 139 MG/DL (70-110)
[2023-09-07 22:47] VITALS: RESP 18
[2023-09-08] VITALS (10 sets, daily range): BP systolic 112–182; BP diastolic 71–90; PULSE 90–93; RESP 16–18; TEMP 97.3–98.6
[2023-09-08] MEDS ORDERED: MAGNESIUM HYDROXIDE SUSPENSION 30 ML UDCUP PO PRN (05:30)
[2023-09-08] MEDS: ACETAMINOPHEN 325 MG TABLET PO PRN (06:43)
[2023-09-08] MEDS ORDERED: LOPERAMIDE HCL 2 MG CAPSULE PO PRN (06:45)
[2023-09-08] MEDS ORDERED: PETROLATUM,WHITE 28 GM JELLY TP PRN (06:45)
[2023-09-08] MEDS ORDERED: ALBUTEROL SULFATE HFA 90 MCG/PUFF 8 GM INHALER IH PRN (06:45)
[2023-09-08] MEDS ORDERED: DOCUSATE SODIUM 100 MG CAPSULE PO PRN (06:45)
[2023-09-08] MEDS ORDERED: ACETAMINOPHEN 325 MG TABLET PO PRN (06:45)
[2023-09-08] MEDS ORDERED: CloNIDine HCL 0.1 MG TABLET PO PRN (06:45)
[2023-09-08] MEDS ORDERED: NICOTINE 14 MG/24 HOUR PATCH TD PRN (06:45)
[2023-09-08] MEDS ORDERED: GuaiFENesin/D-METHORPHAN [SUGAR-FREE] 200-20MG/10 ML SYRUP UDCUP PO PRN (06:45)
[2023-09-08] MEDS: GlipiZIDE 5 MG TABLET PO SCH (07:08)
[2023-09-08] MEDS: CLOPIDOGREL BISULFATE 75 MG TABLET PO SCH (08:33)
[2023-09-08] MEDS: FENOFIBRATE 48 MG TABLET PO SCH (08:34)
[2023-09-08] MEDS: LISINOPRIL 5 MG TABLET PO SCH (08:34)
[2023-09-08] MEDS: CARVEDILOL 3.125 MG TABLET PO SCH (08:34)
[2023-09-08] MEDS: ATORVASTATIN CALCIUM 40 MG TABLET PO SCH (08:34)
[2023-09-08] MEDS ORDERED: DOCUSATE SODIUM 100 MG CAPSULE PO SCH (09:00)
[2023-09-08] MEDS: ONDANSETRON HCL 4 MG TABLET PO PRN (09:08)
[2023-09-08] MEDS: SERTRALINE HCL 50 MG TABLET PO SCH (10:27)
[2023-09-08] MEDS: QUEtiapine FUMARATE 200 MG TABLET PO SCH ×2 (10:27→21:25)
[2023-09-08] MEDS: IBUPROFEN 400 MG TABLET PO PRN (13:44)
[2023-09-08] MEDS: MetFORMIN HCL 500 MG TABLET PO SCH (16:32)
[2023-09-08] MEDS: MAG HYDROX/ALUMINUM HYD/SIMETH ES 30 ML SUSPENSION UDCUP PO PRN (21:24)
[2023-09-09 10:23] VITALS: PULSE 86; RESP 18; TEMP 97
[2023-09-09] MEDS: PANTOPRAZOLE SODIUM 40 MG DR TABLET PO SCH ×2 (10:36→17:00)
[2023-09-09 17:18] VITALS: BP 131/76; PULSE 98
[2023-09-09 20:57] VITALS: BP 121/82; PULSE 100; RESP 18; TEMP 97.1
[2023-09-09] MEDS: LORazepam 2 MG/ML VIAL IM ONE (21:47)
[2023-09-09] MEDS: DiphenhydrAMINE HCL 50 MG/ML VIAL IM ONE (21:47)
[2023-09-09] MEDS: HALOPERIDOL LACTATE 5 MG/ML VIAL IM ONE (21:51)
[2023-09-10 07:39] LABS: HEMOGLOBIN A1C 8.7 % (3.8-5.6)
[2023-09-10 07:49] LABS: THYROID STIMULATING HORMONE 1.65 uIU/mL (0.36-3.74)
[2023-09-10 09:13] VITALS: BP 124/75; PULSE 102; RESP 18; TEMP 98.5
[2023-09-10 13:14] VITALS: BP 121/80; PULSE 89; RESP 18; TEMP 97.8
[2023-09-10 14:25] VITALS: BP 127/78; PULSE 67; RESP 18; TEMP 97
[2023-09-10 20:04] VITALS: BP 96/60; PULSE 97; RESP 18; TEMP 97.7
[2023-09-10 20:07] VITALS: BP 96/60; PULSE 97; RESP 18; TEMP 97.7
[2023-09-11 10:22] VITALS: BP 108/72; PULSE 90; RESP 18; TEMP 97.5
[2023-09-11 11:18] VITALS: RESP 18
[2023-09-11 12:18] VITALS: RESP 18
[2023-09-11 18:01] VITALS: BP 100/59; PULSE 74; RESP 17
[2023-09-11] MEDS: MAGNESIUM HYDROXIDE SUSPENSION 30 ML UDCUP PO PRN (18:13)
[2023-09-11 20:32] VITALS: BP 91/60; PULSE 87; RESP 18; TEMP 97.7
[2023-09-12 09:18] VITALS: RESP 17; TEMP 98
[2023-09-12 18:01] VITALS: BP 117/66; PULSE 97; RESP 18; TEMP 98.2
[2023-09-12 19:09] VITALS: BP 119/62; PULSE 84; RESP 18; TEMP 98
[2023-09-12 20:52] VITALS: BP 112/58; PULSE 87; RESP 17; TEMP 97.8
[2023-09-13 07:36] LABS: BASOPHILS % (AUTO) 0.3 % (0.0-2.0); EOSINOPHILS % (AUTO) 1.8 % (1.0-6.0); HEMATOCRIT 32.1 % (41-53); LYMPHOCYTES # (AUTO) 2.1 K/uL (1.0-4.8); LYMPHOCYTES % (AUTO) 28.2 % (22.0-44.0); MEAN CORPUSCULAR HEMOGLOBIN 30.3 pg (26.0-34.0); MEAN CORPUSCULAR HGB CONC 34.4 G/dL (31.0-37.0); MEAN CORPUSCULAR VOLUME 88 fL (80-100); MONOCYTES # (AUTO) 0.5 K/uL (0.1-1.0); MONOCYTES % (AUTO) 7.1 % (2.0-9.0); NEUTROPHILS # (AUTO) 4.7 K/uL (1.8-7.7); NEUTROPHILS % (AUTO) 62.6 % (40.0-70.0); PLATELET COUNT (AUTO) 377 K/uL (150-450); RED BLOOD CELL COUNT(AUTO) 3.65 MIL/uL (4.50-5.90); RED CELL DISTRIBUTION WIDTH 13.6 % (11.5-14.5); WHITE BLOOD COUNT (AUTO) 7.5 K/uL (4.5-11.0)
[2023-09-13 09:13] VITALS: BP 130/73; PULSE 80; RESP 18; TEMP 97.6
[2023-09-13 20:57] VITALS: RESP 18
[2023-09-14 08:29] VITALS: BP 119/60; PULSE 72; RESP 17; TEMP 98
[2023-09-14 21:06] VITALS: BP 125/67; PULSE 81; RESP 18; TEMP 98.4
[2023-09-15 08:26] VITALS: BP 119/76; PULSE 90; RESP 17; TEMP 97.7
[2023-09-15 20:10] VITALS: RESP 18
[2023-09-16] MEDS ORDERED: PANT-31 PO (17:35)
[2023-09-16] MEDS ORDERED: SERT-158 PO (17:35)
== END 2023-09-16 20:30 | DRG 885 ==
LOC: EMS 10:39 → 3EX 09-07 18:13
PROVIDERS: ADMIT Psychiatry & Neurology Child & Adolescent Psychiatry; ATTEND Psychiatry & Neurology Child & Adolescent Psychiatry
PROC: GZHZZZZ Group Psychotherapy (ICD-10-PCS; principal; 2023-09-08)
DX: F25.0 Schizoaffective disorder, bipolar type (principal); N18.9 Chronic kidney disease, unspecified; E11.65 Type 2 diabetes mellitus with hyperglycemia; E11.22 Type 2 diabetes mellitus with diabetic chronic kidney disease; I12.9 Hypertensive chronic kidney disease with stage 1 through stage 4 chronic kidney disease, or unspecified chronic kidney disease; F17.200 Nicotine dependence, unspecified, uncomplicated; I25.10 Atherosclerotic heart disease of native coronary artery without angina pectoris; E78.5 Hyperlipidemia, unspecified; D72.829 Elevated white blood cell count, unspecified; K21.9 Gastro-esophageal reflux disease without esophagitis; E78.00 Pure hypercholesterolemia, unspecified; Z20.822 Contact with and (suspected) exposure to COVID-19; F17.210 Nicotine dependence, cigarettes, uncomplicated; Z79.82 Long term (current) use of aspirin; Z79.02 Long term (current) use of antithrombotics/antiplatelets; Z79.899 Other long term (current) drug therapy; Z88.8 Allergy status to other drugs, medicaments and biological substances
CPT/HCPCS: 76700; 80048; 80307; 81001; 82330; 82962; 83036; 84443; 85025; G0378; G0480; J1200; J1630; J2060; J2405; J2765; J3490; J7030; Q0162

== ENCOUNTER 2024-04-17 09:29 | Emergency (ER) | payer MEDICARE, OTHER ==
[~2024-04-17] VITALS: Ht 167.6 cm; Wt 59.1 kg
[~2024-04-17 09:29] MED LIST changes: -CARV6 PO; -DIVA-112 PO; +PANT-31 PO; +SERT-158 PO
[2024-04-17 09:38] VITALS: TEMP 99.7
[2024-04-17 09:58] LABS: COVID AG,FIA SOURCE NASAL SWAB
[2024-04-17 09:59] LABS: BASOPHILS % (AUTO) 0.1 % (0.0-2.0); EOSINOPHILS % (AUTO) 0.1 % (1.0-6.0); HEMATOCRIT 25.6 % (41-53); HEMOGLOBIN 8.4 g/dL (13.5-17.5); LYMPHOCYTES # (AUTO) 0.5 K/uL (1.0-4.8); LYMPHOCYTES % (AUTO) 4.1 % (22.0-44.0); MEAN CORPUSCULAR HEMOGLOBIN 30.1 pg (26.0-34.0); MEAN CORPUSCULAR HGB CONC 32.9 G/dL (31.0-37.0); MEAN CORPUSCULAR VOLUME 92 fL (80-100); MONOCYTES # (AUTO) 0.8 K/uL (0.1-1.0); MONOCYTES % (AUTO) 6.8 % (2.0-9.0); NEUTROPHILS # (AUTO) 10.8 K/uL (1.8-7.7); PLATELET COUNT (AUTO) 216 K/uL (150-450); RED CELL DISTRIBUTION WIDTH 15.3 % (11.5-14.5); WHITE BLOOD COUNT (AUTO) 12.2 K/uL (4.5-11.0)
[2024-04-17 10:00] LABS: NEUTROPHILS % (AUTO) 88.9 % (40.0-70.0)
[2024-04-17 10:16] LABS: ANION GAP 8 mmol/L (8-16); CALCIUM, TOTAL 8.4 mg/dL (8.8-10.5); CARBON DIOXIDE 24 mmol/L (22-29); CHLORIDE 100 mmol/L (98-107); CREATININE 1.66 mg/dL (0.60-1.30); GLOMERULAR FILTR. RATE CALC 42 mL/min (>60); GLUCOSE,RANDOM 346 mg/dL (70-110); POTASSIUM 5.2 mmol/L (3.5-5.1); SODIUM SERUM 132 mmol/L (136-145); UREA NITROGEN, BLOOD 50 mg/dL (7-18)
[2024-04-17 10:18] LABS: ALCOHOL, BLOOD (SERUM) < 3 mg/dL (0-10)
[2024-04-17 10:18] LABS: SARS-COV2 (COVID) ANTIGEN,FIA Negative (Negative)
[2024-04-17] MEDS: ACETAMINOPHEN 325 MG TABLET PO ONE (10:35)
[2024-04-17 12:44] LABS: APPEARANCE,URINE HAZY (CLEAR); BILIRUBIN,URINE NEGATIVE (NEGATIVE); COLOR,URINE LIGHT YELLOW (YELLOW); GLUCOSE, URINE (UA) 300-500 mg/dL (NEGATIVE); KETONES,URINE NEGATIVE (NEGATIVE); LEUKOCYTE ESTERASE ,URINE LARGE (NEGATIVE); NITRATE,URINE NEGATIVE (NEGATIVE); OCCULT BLOOD,URINE LARGE (NEGATIVE); PH,URINE 5.5 (5.0-8.0); PH,URINE DRUG SCREEN 5.5 (5.0-8.0); PROTEIN,URINE TRACE mg/dL (NEGATIVE); SPECIFIC GRAVITIY, URINE 1.011 (1.003-1.030); UROBILINOGEN,URINE <=1.0 mg/dL (<=1.0)
[2024-04-17 12:51] LABS: AMPHET/METH SCREEN,URINE NEGATIVE (NEGATIVE); BARBITURATE SCREEN, URINE NEGATIVE (NEGATIVE); BENZODIAZEPINES SCREEN,URINE NEGATIVE (NEGATIVE); CANNABINOID SCREEN,URINE NEGATIVE (NEGATIVE); COCAINE SCREEN,URINE NEGATIVE (NEGATIVE); METHADONE SCREEN, URINE NEGATIVE (NEGATIVE); OPIATE SCREEN,URINE NEGATIVE (NEGATIVE); PHENCYCLIDINE SCREEN,URINE NEGATIVE (NEGATIVE)
[2024-04-17 12:57] LABS: ALCOHOL, URINE DRUG SCREEN NEGATIVE (NEGATIVE); BACTERIA,URINE Many /HPF (None Seen); SQUAMOUS EPITHELIAL CELL,UR Few /LPF (None Seen); WBC,URINE 51-100 /HPF (0-5)
[2024-04-17] MEDS ORDERED: CEPH-558 PO (12:59)
[2024-04-17] MEDS: CEPHALEXIN MONOHYDRATE 500 MG CAPSULE PO ONE (13:04)
[2024-04-17 13:17] VITALS: BP 115/56; PULSE 81; RESP 16; O2SAT 95
== END 2024-04-17 14:23 | disposition home or self-care (01) ==
LOC: EMS 09:33
DX: N39.0 Urinary tract infection, site not specified (principal); D64.9 Anemia, unspecified; F31.9 Bipolar disorder, unspecified; E11.22 Type 2 diabetes mellitus with diabetic chronic kidney disease; E78.00 Pure hypercholesterolemia, unspecified; I12.9 Hypertensive chronic kidney disease with stage 1 through stage 4 chronic kidney disease, or unspecified chronic kidney disease; F20.9 Schizophrenia, unspecified; K21.9 Gastro-esophageal reflux disease without esophagitis; F17.210 Nicotine dependence, cigarettes, uncomplicated; Z79.84 Long term (current) use of oral hypoglycemic drugs; Z79.899 Other long term (current) drug therapy; Z88.8 Allergy status to other drugs, medicaments and biological substances; Z20.822 Contact with and (suspected) exposure to COVID-19
CPT/HCPCS: 99283; 87426; 80048; 81001; 82962; 85025; 87077; 87086; 87186; 36415; 80307; G0480

== ENCOUNTER 2024-04-29 21:34 | Emergency (ER) | payer MEDICARE, OTHER ==
[~2024-04-29] VITALS: Ht 162.6 cm; Wt 59.1 kg
[2024-04-29 21:49] VITALS: BP 144/77; PULSE 77; RESP 14; TEMP 98.5; O2SAT 98
[2024-04-29 22:11] LABS: GLUCOMETER DEV NAME(LOC) ERT.6; GLUCOSE,POINT OF CARE 158 MG/DL (70-110)
== END 2024-04-30 01:40 | disposition short-term general hospital (02) ==
LOC: EMS 21:38
DX: S00.83XA Contusion of other part of head, initial encounter (principal); F25.0 Schizoaffective disorder, bipolar type; E11.9 Type 2 diabetes mellitus without complications; I10 Essential (primary) hypertension; K21.9 Gastro-esophageal reflux disease without esophagitis; E78.00 Pure hypercholesterolemia, unspecified; Z88.8 Allergy status to other drugs, medicaments and biological substances; Z79.84 Long term (current) use of oral hypoglycemic drugs; Z79.899 Other long term (current) drug therapy; Y04.8XXA Assault by other bodily force, initial encounter; Y93.89 Activity, other specified; Y92.89 Other specified places as the place of occurrence of the external cause; Y99.8 Other external cause status
CPT/HCPCS: 70450; 72125; 82962; 99284

== ENCOUNTER 2024-05-29 17:28 | Emergency (ER) | payer MEDICARE, OTHER ==
[~2024-05-29 17:28] MED LIST changes: -LISI-892 PO; -QUET300T2 PO; -SERT-158 PO
[2024-05-29 20:45] VITALS: BP 112/50; PULSE 84; RESP 16; O2SAT 99
== END 2024-05-29 23:13 | disposition home or self-care (01) ==
LOC: EMS 17:28
DX: S09.92XA Unspecified injury of nose, initial encounter (principal); E11.9 Type 2 diabetes mellitus without complications; I10 Essential (primary) hypertension; K21.9 Gastro-esophageal reflux disease without esophagitis; E78.00 Pure hypercholesterolemia, unspecified; F25.9 Schizoaffective disorder, unspecified; Z88.8 Allergy status to other drugs, medicaments and biological substances; Z79.84 Long term (current) use of oral hypoglycemic drugs; Z79.899 Other long term (current) drug therapy; W22.8XXA Striking against or struck by other objects, initial encounter; Y93.89 Activity, other specified; Y92.89 Other specified places as the place of occurrence of the external cause; Y99.8 Other external cause status
CPT/HCPCS: 99281; Z7502

== ENCOUNTER 2024-06-29 13:23 | Inpatient (IN) | payer MEDICARE, OTHER ==
[~2024-06-29] VITALS: Ht 160 cm; Wt 69.0 kg
[~2024-06-29 13:23] MED LIST changes: -METF-1211 PO; +SERT-158 PO
[2024-06-29 14:31] LABS: COVID AG,FIA SOURCE NASAL SWAB
[2024-06-29 14:32] LABS: BASOPHILS % (AUTO) 0.3 % (0.0-2.0); EOSINOPHILS % (AUTO) 1.8 % (1.0-6.0); HEMATOCRIT 24.4 % (41-53); LYMPHOCYTES # (AUTO) 1.1 K/uL (1.0-4.8); LYMPHOCYTES % (AUTO) 16.5 % (22.0-44.0); MEAN CORPUSCULAR HEMOGLOBIN 28.9 pg (26.0-34.0); MEAN CORPUSCULAR HGB CONC 32.9 G/dL (31.0-37.0); MEAN CORPUSCULAR VOLUME 88 fL (80-100); MONOCYTES # (AUTO) 0.5 K/uL (0.1-1.0); MONOCYTES % (AUTO) 8.2 % (2.0-9.0); NEUTROPHILS # (AUTO) 4.8 K/uL (1.8-7.7); NEUTROPHILS % (AUTO) 73.2 % (40.0-70.0); PLATELET COUNT (AUTO) 340 K/uL (150-450); RED BLOOD CELL COUNT(AUTO) 2.78 MIL/uL (4.50-5.90); RED CELL DISTRIBUTION WIDTH 14.9 % (11.5-14.5); WHITE BLOOD COUNT (AUTO) 6.5 K/uL (4.5-11.0)
[2024-06-29 14:41] LABS: ANION GAP 9 mmol/L (8-16); CALCIUM, TOTAL 9.1 mg/dL (8.8-10.5); CARBON DIOXIDE 25 mmol/L (22-29); CHLORIDE 104 mmol/L (98-107); CREATININE 2.06 mg/dL (0.60-1.30); GLOMERULAR FILTR. RATE CALC 33 mL/min (>60); GLUCOSE,RANDOM 280 mg/dL (70-110); SODIUM SERUM 138 mmol/L (136-145); UREA NITROGEN, BLOOD 32 mg/dL (7-18)
[2024-06-29 14:43] LABS: POTASSIUM 6.1 mmol/L (3.5-5.1)
[2024-06-29 14:52] LABS: SARS-COV2 (COVID) ANTIGEN,FIA Negative (Negative)
[2024-06-29 15:02] LABS: ALBUMIN 3.2 g/dL (3.4-5.0); BILIRUBIN,DIRECT 0.1 mg/dL (0.00-0.20); BILIRUBIN,TOTAL 0.3 mg/dL (0.1-1.0); TOTAL PROTEIN, SERUM 6.7 g/dL (6.4-8.2)
[2024-06-29 15:06] LABS: CREATINE KINASE, TOTAL ONLY 51 U/L (39-308); TROPONIN I-HIGH SENSITIVITY 7 ng/L (<76)
[2024-06-29] MEDS: DEXTROSE 50%-WATER 25 GM/50 ML SYRINGE IVP ONE (15:14)
[2024-06-29] MEDS: INSULIN REGULAR, HUMAN 100 UNITS/ML IVP ONE (15:15)
[2024-06-29] MEDS: SODIUM ZIRCONIUM CYCLOSILICATE 10 GM POWDER PACKET PO ONE (15:17)
[2024-06-29] MEDS: CALCIUM GLUCONATE 1,000 MG in DEXTROSE 5%-WATER 50 ML IV ONE (15:17)
[2024-06-29] MEDS: FUROSEMIDE 20 MG/2 ML VIAL IVP ONE (15:17)
[2024-06-29 15:27] LABS: ALCOHOL, BLOOD (SERUM) < 3 mg/dL (0-10)
[2024-06-29] MEDS: SODIUM CHLORIDE 0.9% 1,000 ML IV ONE (17:38)
[2024-06-29] MEDS ORDERED: 0.9% SODIUM CHLORIDE 5 ML NEB SOLUTION NEB ONE (17:43)
[2024-06-29 17:45] VITALS: PULSE 84; RESP 20; O2SAT 98
[2024-06-29] MEDS: ALBUTEROL SULFATE 2.5 MG/0.5 ML 5 ML NEB SOLUTION NEB ONE (17:45)
[2024-06-29 18:20] LABS: CALCIUM, TOTAL 9.5 mg/dL (8.8-10.5); CREATININE 1.91 mg/dL (0.60-1.30)
[2024-06-29 19:58] VITALS: BP 139/80; PULSE 92; RESP 17; TEMP 97.7; O2SAT 98
[2024-06-29] MEDS ORDERED: MAGNESIUM HYDROXIDE SUSPENSION 30 ML UDCUP PO PRN (22:45)
[2024-06-29] MEDS ORDERED: ALBUTEROL SULFATE 2.5 MG/0.5 ML NEB SOLUTION NEB PRN (22:45)
[2024-06-29] MEDS ORDERED: MORPHINE SULFATE 2 MG/ML SYRINGE IVP PRN (22:45)
[2024-06-29] MEDS ORDERED: IPRATROPIUM BROMIDE 0.5 MG/2.5 ML NEB SOLUTION NEB PRN (22:45)
[2024-06-29] MEDS ORDERED: HYDROCODONE/ACETAMINOPHEN 5-325 MG TABLET PO PRN (22:45)
[2024-06-29] MEDS ORDERED: ONDANSETRON HCL 4 MG/2 ML VIAL IVP PRN (22:45)
[2024-06-29] MEDS ORDERED: ZOLPIDEM TARTRATE 5 MG TABLET PO PRN (22:45)
[2024-06-29] MEDS ORDERED: ACETAMINOPHEN 325 MG TABLET PO PRN (22:45)
[2024-06-29] MEDS ORDERED: BISACODYL 10 MG RECTAL RECTAL SUPPOSITORY PR PRN (22:45)
[2024-06-29] MEDS ORDERED: MICO14CR6 TP (23:00)
[2024-06-29] MEDS ORDERED: MULT-1203 PO (23:00)
[2024-06-29] MEDS ORDERED: ENOX40SY14 SQ (23:00)
[2024-06-29] MEDS ORDERED: DOCU-412 PO (23:00)
[2024-06-29] MEDS ORDERED: METF-1211 PO (23:00)
[2024-06-29] MEDS ORDERED: DIVA-112 PO (23:00)
[2024-06-29] MEDS ORDERED: FENO67CA16 PO (23:00)
[2024-06-29] MEDS ORDERED: BISA10SU61 PR (23:00)
[2024-06-29] MEDS ORDERED: GABA-1181 PO (23:00)
[2024-06-29] MEDS ORDERED: ONDA4 PO (23:04)
[2024-06-29] MEDS ORDERED: ONDA-104 PO (23:04)
[2024-06-29] MEDS ORDERED: QUET50TA PO (23:04)
[2024-06-29] MEDS ORDERED: ACET650S24 PR (23:04)
[2024-06-29] MEDS: HEPARIN SODIUM,PORCINE 5,000 UNITS/ML VIAL SQ SCH (23:24)
[2024-06-29 23:58] VITALS: BP 130/75; PULSE 91; RESP 17; TEMP 98; O2SAT 98
[2024-06-30 04:38] VITALS: BP 126/66; PULSE 96; RESP 18; TEMP 98.7; O2SAT 98
[2024-06-30] MEDS: GlipiZIDE 5 MG TABLET PO SCH (05:46)
[2024-06-30 07:24] VITALS: BP 137/76; PULSE 84; RESP 18; TEMP 98.8; O2SAT 98
[2024-06-30] MEDS: CARVEDILOL 3.125 MG TABLET PO SCH (08:19)
[2024-06-30] MEDS: CLOPIDOGREL BISULFATE 75 MG TABLET PO SCH (08:19)
[2024-06-30] MEDS: ATORVASTATIN CALCIUM 40 MG TABLET PO SCH (08:19)
[2024-06-30] MEDS: PANTOPRAZOLE SODIUM 40 MG DR TABLET PO SCH (08:19)
[2024-06-30] MEDS: HALOPERIDOL LACTATE 5 MG/ML VIAL IM ONE (08:39)
[2024-06-30] MEDS: LORazepam 2 MG/ML VIAL IM ONE (08:39)
[2024-06-30] MEDS: DiphenhydrAMINE HCL 50 MG/ML VIAL IM ONE (08:39)
[2024-06-30] MEDS ORDERED: PANTOPRAZOLE SODIUM 40 MG DR TABLET PO SCH (09:00)
[2024-06-30] MEDS: SERTRALINE HCL 50 MG TABLET PO SCH (09:00)
[2024-06-30 10:34] LABS: CALCIUM, TOTAL 8.4 mg/dL (8.8-10.5); CREATININE 1.69 mg/dL (0.60-1.30); MAGNESIUM 1.6 mg/dL (1.80-2.40); POTASSIUM 4.5 mmol/L (3.5-5.1)
[2024-06-30 10:57] VITALS: BP 127/63; PULSE 83; RESP 18; TEMP 98.7; O2SAT 97
[2024-06-30] MEDS ORDERED: DEXTROSE 50%-WATER 25 GM/50 ML SYRINGE IVP PRN (11:00)
[2024-06-30] MEDS: INSULIN LISPRO 100 UNITS/ML SQ PRN (11:36)
[2024-06-30 11:55] LABS: GLUCOMETER DEV NAME(LOC) 5S.2D; GLUCOSE,POINT OF CARE 313 MG/DL (70-110)
[2024-06-30 13:13] LABS: APPEARANCE,URINE CLEAR (CLEAR); BILIRUBIN,URINE NEGATIVE (NEGATIVE); COLOR,URINE LIGHT YELLOW (YELLOW); GLUCOSE, URINE (UA) >=1000 mg/dL (NEGATIVE); KETONES,URINE NEGATIVE (NEGATIVE); LEUKOCYTE ESTERASE ,URINE NEGATIVE (NEGATIVE); NITRATE,URINE NEGATIVE (NEGATIVE); OCCULT BLOOD,URINE NEGATIVE (NEGATIVE); PH,URINE 5.5 (5.0-8.0); PH,URINE DRUG SCREEN 5.5 (5.0-8.0); PROTEIN,URINE NEGATIVE (NEGATIVE); SPECIFIC GRAVITIY, URINE 1.011 (1.003-1.030); UROBILINOGEN,URINE <=1.0 mg/dL (<=1.0)
[2024-06-30 13:19] LABS: AMPHET/METH SCREEN,URINE NEGATIVE (NEGATIVE); BARBITURATE SCREEN, URINE NEGATIVE (NEGATIVE); BENZODIAZEPINES SCREEN,URINE NEGATIVE (NEGATIVE); CANNABINOID SCREEN,URINE NEGATIVE (NEGATIVE); COCAINE SCREEN,URINE NEGATIVE (NEGATIVE); METHADONE SCREEN, URINE NEGATIVE (NEGATIVE); OPIATE SCREEN,URINE NEGATIVE (NEGATIVE); PHENCYCLIDINE SCREEN,URINE NEGATIVE (NEGATIVE)
[2024-06-30 13:20] LABS: ALCOHOL, URINE DRUG SCREEN NEGATIVE (NEGATIVE)
[2024-06-30 13:24] LABS: BACTERIA,URINE None Seen /HPF (None Seen); RBC,URINE None Seen /HPF (0-2); WBC,URINE 0-2 /HPF (0-5)
[2024-06-30] MEDS: SODIUM CHLORIDE 0.45% 1,000 ML IV SCH (13:30)
[2024-06-30 16:06] VITALS: BP 125/71; PULSE 81; RESP 18; TEMP 98.9; O2SAT 96
[2024-06-30 17:31] LABS: GLUCOMETER DEV NAME(LOC) 5S.2D; GLUCOSE,POINT OF CARE 249 MG/DL (70-110)
[2024-06-30 19:31] VITALS: BP 128/75; PULSE 83; RESP 17; TEMP 98.7; O2SAT 97
[2024-06-30 22:50] LABS: GLUCOMETER DEV NAME(LOC) 5N.2C; GLUCOSE,POINT OF CARE 238 MG/DL (70-110)
[2024-06-30 23:57] VITALS: BP 132/93; PULSE 79; RESP 18; TEMP 98.5; O2SAT 97
[2024-07-01] MEDS: HALOPERIDOL LACTATE 5 MG/ML VIAL IM ONE ×2 (05:45→13:13)
[2024-07-01 06:07] VITALS: BP 136/77; PULSE 82; RESP 18; TEMP 98.4; O2SAT 97
[2024-07-01 07:30] VITALS: BP 149/86; PULSE 70; RESP 18; TEMP 98.3; O2SAT 98
[2024-07-01 11:41] VITALS: BP 137/80; PULSE 80; RESP 18; TEMP 97.9; O2SAT 96
[2024-07-01 13:01] VITALS: BP 173/101; PULSE 71; RESP 18; TEMP 97.8; O2SAT 99
[2024-07-01] MEDS: HydrALAZINE HCL 20 MG/ML VIAL IVP PRN (13:12)
[2024-07-01 17:06] LABS: GLUCOMETER DEV NAME(LOC) 5N.2C; GLUCOSE,POINT OF CARE 288 MG/DL (70-110)
[2024-07-01 17:35] LABS: GLUCOMETER DEV NAME(LOC) 5N.2C; GLUCOSE,POINT OF CARE 294 MG/DL (70-110)
[2024-07-01 20:00] VITALS: BP 146/84; PULSE 82; RESP 18; TEMP 98; O2SAT 97
[2024-07-01] MEDS: DIVALPROEX SODIUM 500 MG DR TABLET PO SCH (21:08)
[2024-07-02 07:36] LABS: GLUCOMETER DEV NAME(LOC) 5N.2C; GLUCOSE,POINT OF CARE 265 MG/DL (70-110)
[2024-07-02 08:45] VITALS: BP 142/80; PULSE 80; RESP 18; TEMP 98.1; O2SAT 98
[2024-07-02 11:59] LABS: BASOPHILS % (AUTO) 0.2 % (0.0-2.0); EOSINOPHILS % (AUTO) 0.9 % (1.0-6.0); HEMATOCRIT 28.7 % (41-53); HEMOGLOBIN 9.6 g/dL (13.5-17.5); LYMPHOCYTES # (AUTO) 0.7 K/uL (1.0-4.8); LYMPHOCYTES % (AUTO) 14.7 % (22.0-44.0); MEAN CORPUSCULAR HEMOGLOBIN 28.7 pg (26.0-34.0); MEAN CORPUSCULAR HGB CONC 33.3 G/dL (31.0-37.0); MEAN CORPUSCULAR VOLUME 86 fL (80-100); MONOCYTES # (AUTO) 0.4 K/uL (0.1-1.0); MONOCYTES % (AUTO) 7.3 % (2.0-9.0); NEUTROPHILS # (AUTO) 3.8 K/uL (1.8-7.7); NEUTROPHILS % (AUTO) 76.9 % (40.0-70.0); PLATELET COUNT (AUTO) 427 K/uL (150-450); RED BLOOD CELL COUNT(AUTO) 3.33 MIL/uL (4.50-5.90); RED CELL DISTRIBUTION WIDTH 14.5 % (11.5-14.5); WHITE BLOOD COUNT (AUTO) 4.9 K/uL (4.5-11.0)
[2024-07-02 12:10] LABS: ANION GAP 10 mmol/L (8-16); CALCIUM, TOTAL 9.6 mg/dL (8.8-10.5); CARBON DIOXIDE 25 mmol/L (22-29); CHLORIDE 100 mmol/L (98-107); CREATININE 1.06 mg/dL (0.60-1.30); GLOMERULAR FILTR. RATE CALC > 60 mL/min (>60); GLUCOSE,RANDOM 284 mg/dL (70-110); PHOSPHORUS 3.2 mg/dL (2.5-4.9); POTASSIUM 4.5 mmol/L (3.5-5.1); SODIUM SERUM 135 mmol/L (136-145); UREA NITROGEN, BLOOD 24 mg/dL (7-18)
[2024-07-02 12:21] LABS: GLUCOMETER DEV NAME(LOC) 5N.2C; GLUCOSE,POINT OF CARE 289 MG/DL (70-110)
[2024-07-02] MEDS: MAGNESIUM OXIDE 400 MG TABLET PO ONE (15:30)
[2024-07-02] MEDS: MAGNESIUM SULFATE 2 GM/WATER 50 ML IV ONE (15:31)
[2024-07-04] MEDS ORDERED: QUET200T PO (14:25)
[2024-07-04] MEDS ORDERED: MAGN-169 PO (14:30)
[2024-07-04] MEDS ORDERED: BISA10SU11 PR (14:32)
[2024-07-04] MEDS ORDERED: NA P266E RC (14:32)
== END 2024-07-02 19:57 | DRG 682 ==
LOC: EMS 13:29 → EDH 17:23 → 5N 18:55
PROVIDERS: ADMIT Hospitalist; ATTEND Hospitalist
PROC: GZ56ZZZ Individual Psychotherapy, Supportive (ICD-10-PCS; principal; 2024-06-30)
DX: N17.0 Acute kidney failure with tubular necrosis (principal); E43 Unspecified severe protein-calorie malnutrition; E87.5 Hyperkalemia; E11.22 Type 2 diabetes mellitus with diabetic chronic kidney disease; M54.50 Low back pain, unspecified; Z66 Do not resuscitate; N40.0 Benign prostatic hyperplasia without lower urinary tract symptoms; R13.10 Dysphagia, unspecified; Z20.822 Contact with and (suspected) exposure to COVID-19; D64.9 Anemia, unspecified; K21.9 Gastro-esophageal reflux disease without esophagitis; E78.00 Pure hypercholesterolemia, unspecified; F25.9 Schizoaffective disorder, unspecified; J45.909 Unspecified asthma, uncomplicated; E83.42 Hypomagnesemia; I10 Essential (primary) hypertension; Z79.02 Long term (current) use of antithrombotics/antiplatelets; Z79.84 Long term (current) use of oral hypoglycemic drugs; Z79.899 Other long term (current) drug therapy; Z87.891 Personal history of nicotine dependence; Z88.8 Allergy status to other drugs, medicaments and biological substances; Z68.26 Body mass index [BMI] 26.0-26.9, adult; M48.00 Spinal stenosis, site unspecified
CPT/HCPCS: 71045; 76770; 80048; 80076; 80307; 81001; 82550; 82962; 83735; 83880; 84100; 84484; 85025; 87081; 93005; 94640; 96361; 96365; 96375; 97163; 97530; 99291; G0480; J0360; J0610; J1200; J1630; J1644; J1815; J1940; J2060; J3475; J7060; 36415-L1; 36415-TC

== ENCOUNTER → 2024-07-04 | Emergency (ER) | payer MEDICARE, OTHER ==
[~2024-07-04] VITALS: Ht 162.6 cm; Wt 61.4 kg
[~2024-07-04] MED LIST changes: +ACET650S24 PR; +BISA10SU11 PR; +BISA10SU61 PR; +DIVA-112 PO; +DOCU-412 PO; +ENOX40SY14 SQ; -FENO48TA12 PO; +FENO67CA16 PO; +GABA-1181 PO; +MAGN-169 PO; +METF-1211 PO; +MICO14CR6 TP; +MULT-1203 PO; +NA P266E RC; +ONDA-104 PO; +ONDA4 PO; +QUET50TA PO
[2024-07-04 14:14] VITALS: TEMP 97.9
[2024-07-04 16:30] VITALS: BP 165/86; PULSE 88; RESP 18; O2SAT 99
== END | disposition still patient (30) ==
LOC: EMS 13:32
DX: R45.1 Restlessness and agitation (principal); I10 Essential (primary) hypertension; F20.9 Schizophrenia, unspecified; E78.00 Pure hypercholesterolemia, unspecified; E11.9 Type 2 diabetes mellitus without complications; K21.9 Gastro-esophageal reflux disease without esophagitis; F31.9 Bipolar disorder, unspecified; F17.210 Nicotine dependence, cigarettes, uncomplicated; Z79.899 Other long term (current) drug therapy; Z88.8 Allergy status to other drugs, medicaments and biological substances
CPT/HCPCS: 99283; 99284; 99406

== ENCOUNTER 2025-02-23 12:47 | Inpatient (IN) | payer MEDICARE, MEDICAID ==
[~2025-02-23] VITALS: Ht 162.6 cm; Wt 57.2 kg
[~2025-02-23 12:47] MED LIST changes: -ACET650S24 PR; -BISA10SU11 PR; -BISA10SU61 PR; -CLOP75TA60 PO; +CLOP75TA83 PO; -ENOX40SY14 SQ; -FENO67CA16 PO; -GABA-1181 PO; -MAGN-169 PO; -METF-1211 PO; -MICO14CR6 TP; -NA P266E RC; -ONDA-104 PO; -ONDA4 PO; +QUET100T PO; -QUET200T PO; +QUET25TA PO; -QUET50TA PO; -SERT-158 PO; +SERT-162 PO
[2025-02-23 13:30] VITALS: BP 132/70; PULSE 81; RESP 18; TEMP 98.4; O2SAT 98
[2025-02-23] MEDS ORDERED: ZOLPIDEM TARTRATE 10 MG TABLET PO PRN (14:45)
[2025-02-23 16:50] LABS: GLUCOMETER DEV NAME(LOC) POC.BV; POC SARS-COV2 AG, FIA NEGATIVE (NEGATIVE)
[2025-02-23] MEDS ORDERED: BACITRACIN 28 GM OINTMENT TP PRN (19:00)
[2025-02-23 19:38] VITALS: BP 125/71; PULSE 81; RESP 16; TEMP 98.1; O2SAT 99
[2025-02-23] MEDS ORDERED: INFLUENZA VIRUS VACCINE TVS (6MO+) 2025-26/PF 45 MCG/0.5 ML SYRINGE IM. ONE (20:30)
[2025-02-24] MEDS ORDERED: BACITRACIN 28 GM OINTMENT TP SCH (09:00)
[2025-02-24 10:50] LABS: GLUCOMETER DEV NAME(LOC) POC.BV; POC SARS-COV2 AG, FIA NEGATIVE (NEGATIVE)
== END 2025-02-23 23:38 | disposition short-term general hospital (02) | DRG 885 ==
LOC: B2X 14:35
PROVIDERS: ADMIT Psychiatry & Neurology Psychiatry; ATTEND Psychiatry & Neurology Psychiatry
DX: F25.9 Schizoaffective disorder, unspecified (principal); R45.851 Suicidal ideations; Z20.822 Contact with and (suspected) exposure to COVID-19

== ENCOUNTER 2025-02-23 19:00 | Inpatient (IN) | payer MEDICARE, OTHER ==
[~2025-02-23] VITALS: Ht 162.6 cm; Wt 59.0 kg
[2025-02-23] MEDS ORDERED: ALBUTEROL SULFATE 2.5 MG/0.5 ML NEB SOLUTION NEB PRN (19:15)
[2025-02-23] MEDS ORDERED: ONDANSETRON HCL 4 MG/2 ML VIAL IVP PRN (19:15)
[2025-02-23] MEDS ORDERED: DEXTROSE 50%-WATER 25 GM/50 ML SYRINGE IVP PRN (19:15)
[2025-02-23 19:37] LABS: PLATELET COUNT (AUTO) 253 K/uL (150-450); RED BLOOD CELL COUNT(AUTO) 3.30 MIL/uL (4.50-5.90); RED CELL DISTRIBUTION WIDTH 15.8 % (11.5-14.5); WHITE BLOOD COUNT (AUTO) 6.3 K/uL (4.5-11.0)
[2025-02-23 19:46] LABS: CALCIUM, TOTAL 8.4 mg/dL (8.8-10.5); CREATININE 1.71 mg/dL (0.60-1.30); GLOMERULAR FILTR. RATE CALC 41 mL/min (>60); GLUCOSE,RANDOM 221 mg/dL (70-110); SODIUM SERUM 140 mmol/L (136-145); UREA NITROGEN, BLOOD 47 mg/dL (7-18)
[2025-02-23 19:50] LABS: GLUCOMETER DEV NAME(LOC) ER.7; GLUCOSE,POINT OF CARE 214 MG/DL (70-110)
[2025-02-23 19:53] LABS: ASPARTATE AMINOTRANSFERASE 18.0 U/L (15-37); TOTAL PROTEIN, SERUM 6.6 g/dL (6.4-8.2)
[2025-02-23 19:59] LABS: TROPONIN I-HIGH SENSITIVITY 9 ng/L (<76)
[2025-02-23] MEDS: DOCUSATE SODIUM 100 MG CAPSULE PO SCH (21:00)
[2025-02-23] MEDS: INSULIN LISPRO 100 UNITS/ML SQ PRN (21:56)
[2025-02-23 22:46] LABS: GLUCOMETER DEV NAME(LOC) ER.7; GLUCOSE,POINT OF CARE 210 MG/DL (70-110)
[2025-02-23 22:50] LABS: APPEARANCE,URINE CLEAR (CLEAR); GLUCOSE, URINE (UA) >=1000 mg/dL (NEGATIVE); LEUKOCYTE ESTERASE ,URINE NEGATIVE (NEGATIVE); NITRATE,URINE NEGATIVE (NEGATIVE); OCCULT BLOOD,URINE NEGATIVE (NEGATIVE); SPECIFIC GRAVITIY, URINE 1.018 (1.003-1.030)
[2025-02-23] MEDS: HEPARIN SODIUM,PORCINE 5,000 UNITS/ML VIAL SQ SCH (23:05)
[2025-02-23 23:20] LABS: SQUAMOUS EPITHELIAL CELL,UR Rare /LPF (None Seen)
[2025-02-24 01:56] LABS: GLUCOMETER DEV NAME(LOC) ER.7; GLUCOSE,POINT OF CARE 88 MG/DL (70-110)
[2025-02-24] MEDS: FAMOTIDINE 20 MG TABLET PO SCH (08:47)
[2025-02-24] MEDS: SODIUM CHLORIDE 0.9% 1,000 ML IV ONE (08:47)
[2025-02-24 09:21] LABS: GLUCOMETER DEV NAME(LOC) ER.7; GLUCOSE,POINT OF CARE 107 MG/DL (70-110)
[2025-02-24 11:00] VITALS: BP 155/74; PULSE 68; RESP 18; TEMP 98.8; O2SAT 98
[2025-02-24 16:45] VITALS: BP 148/72; PULSE 76; RESP 18; TEMP 98.2; O2SAT 98
[2025-02-24 20:00] VITALS: BP 161/68; PULSE 75; RESP 18; TEMP 98.2; O2SAT 96
[2025-02-24 21:20] LABS: GLUCOMETER DEV NAME(LOC) 6N.2C; GLUCOSE,POINT OF CARE 205 MG/DL (70-110)
[2025-02-24 21:20] LABS: GLUCOMETER DEV NAME(LOC) 6N.2C; GLUCOSE,POINT OF CARE 161 MG/DL (70-110)
[2025-02-25] MEDS: ACETAMINOPHEN 325 MG TABLET PO PRN (00:46)
[2025-02-25 06:30] VITALS: BP 155/90; PULSE 62; RESP 18; TEMP 98.8; O2SAT 98
[2025-02-25 06:41] LABS: GLUCOMETER DEV NAME(LOC) 4S.2; GLUCOSE,POINT OF CARE 156 MG/DL (70-110)
[2025-02-25 07:35] LABS: CALCIUM, TOTAL 8.5 mg/dL (8.8-10.5); CREATININE 0.92 mg/dL (0.60-1.30); GLOMERULAR FILTR. RATE CALC > 60 mL/min (>60); GLUCOSE,RANDOM 160 mg/dL (70-110); SODIUM SERUM 138 mmol/L (136-145); UREA NITROGEN, BLOOD 31 mg/dL (7-18)
[2025-02-25 08:14] VITALS: BP 163/86; PULSE 73; RESP 18; TEMP 98.8; O2SAT 95
[2025-02-25 11:46] LABS: GLUCOMETER DEV NAME(LOC) 6N.2C; GLUCOSE,POINT OF CARE 184 MG/DL (70-110)
[2025-02-25] MEDS: LOSARTAN POTASSIUM 25 MG TABLET PO SCH ×2 (12:15→20:21)
[2025-02-25 16:02] VITALS: BP 176/81; PULSE 72; RESP 17; TEMP 97.7; O2SAT 98
[2025-02-25] MEDS: MAGNESIUM HYDROXIDE SUSPENSION 30 ML UDCUP PO PRN (17:19)
[2025-02-25 18:06] LABS: GLUCOMETER DEV NAME(LOC) 4S.2; GLUCOSE,POINT OF CARE 174 MG/DL (70-110)
[2025-02-25 19:16] VITALS: BP 141/83; PULSE 68; RESP 18; TEMP 99.1; O2SAT 97
[2025-02-25 21:51] LABS: GLUCOMETER DEV NAME(LOC) 4S.2; GLUCOSE,POINT OF CARE 230 MG/DL (70-110)
[2025-02-26 04:52] VITALS: BP 125/64; PULSE 58; RESP 18; TEMP 98.4; O2SAT 98
[2025-02-26 07:35] VITALS: BP 121/58; PULSE 65; RESP 18; TEMP 98.6; O2SAT 100
[2025-02-26 11:16] LABS: GLUCOMETER DEV NAME(LOC) 4S.2; GLUCOSE,POINT OF CARE 150 MG/DL (70-110)
[2025-02-26 15:10] VITALS: BP 163/76; PULSE 69; RESP 18; TEMP 99.1; O2SAT 98
[2025-02-26 19:22] VITALS: BP 150/74; PULSE 63; RESP 17; TEMP 98.6; O2SAT 99
[2025-02-26 21:30] LABS: GLUCOMETER DEV NAME(LOC) 4S.2; GLUCOSE,POINT OF CARE 234 MG/DL (70-110)
[2025-02-27 03:41] LABS: GLUCOMETER DEV NAME(LOC) 4E.2; GLUCOSE,POINT OF CARE 309 MG/DL (70-110)
[2025-02-27 04:12] VITALS: BP 149/73; PULSE 61; RESP 18; TEMP 98.2; O2SAT 97
[2025-02-27 06:15] LABS: GLUCOMETER DEV NAME(LOC) 4E.2; GLUCOSE,POINT OF CARE 182 MG/DL (70-110)
[2025-02-27 08:00] VITALS: BP 142/77; PULSE 66; RESP 19; TEMP 98.4; O2SAT 99
[2025-02-27 20:12] VITALS: BP 158/77; PULSE 65; RESP 18; TEMP 98.2; O2SAT 96
[2025-02-27 22:06] LABS: GLUCOMETER DEV NAME(LOC) 4S.2; GLUCOSE,POINT OF CARE 220 MG/DL (70-110)
[2025-02-28 04:03] VITALS: BP 152/89; PULSE 66; RESP 18; TEMP 98.2; O2SAT 99
[2025-02-28 06:11] LABS: GLUCOMETER DEV NAME(LOC) 4E.2; GLUCOSE,POINT OF CARE 153 MG/DL (70-110)
[2025-02-28 07:20] VITALS: BP 132/78; PULSE 65; RESP 18; TEMP 98.1; O2SAT 98
[2025-02-28] MEDS ORDERED: DOCU-385 PO (14:05)
[2025-02-28] MEDS ORDERED: HEPA50009 SQ (14:05)
[2025-02-28] MEDS ORDERED: FAMO20 PO (14:05)
[2025-02-28] MEDS ORDERED: LOSA-381 PO (14:06)
[2025-02-28] MEDS ORDERED: ACET-2247 PO (14:06)
[2025-02-28] MEDS ORDERED: ALBU2.5V39 NEB (14:07)
[2025-02-28] MEDS ORDERED: CLON0.1T2 PO (14:08)
[2025-02-28] MEDS ORDERED: INSU100V SQ (14:09)
[2025-02-28] MEDS ORDERED: MAGN-169 PO (14:09)
[2025-02-28 14:44] VITALS: BP 186/89; PULSE 69; RESP 18
== END 2025-02-28 15:35 | DRG 683 ==
LOC: EMS 19:01 → EDH 19:14 → 6S 02-24 11:05 → 4E 02-25 00:42
PROVIDERS: ADMIT Internal Medicine; ATTEND Internal Medicine
DX: N17.9 Acute kidney failure, unspecified (principal); R45.851 Suicidal ideations; D63.8 Anemia in other chronic diseases classified elsewhere; E11.65 Type 2 diabetes mellitus with hyperglycemia; F25.9 Schizoaffective disorder, unspecified; I10 Essential (primary) hypertension; J44.9 Chronic obstructive pulmonary disease, unspecified; F17.200 Nicotine dependence, unspecified, uncomplicated; K21.9 Gastro-esophageal reflux disease without esophagitis; E78.00 Pure hypercholesterolemia, unspecified; R29.6 Repeated falls; Z79.4 Long term (current) use of insulin; Z88.8 Allergy status to other drugs, medicaments and biological substances; Z79.899 Other long term (current) drug therapy
CPT/HCPCS: 70450; 71045; 72125; 80048; 80076; 81001; 82962; 83880; 84484; 85025; 87081; 93005; 97116; 97162; 97530; 99285; G0378; J1644; J1815; J7030; 36415-L1; 36415-TC